=== PATIENT | male | born 1935 | race Caucasian/White ===

== ENCOUNTER 2017-07-21 16:44 | Inpatient (IN) | payer MEDICARE, OTHER ==
[2017-07-21] MEDS ORDERED: IPRATROPIUM-ALBUTEROL 3 ML NEB INHALATION STA (17:12)
[2017-07-21] MEDS ORDERED: methylPREDNISolone SOD SUCCI 125 MG/2 ML VIAL IV STA (17:12)
[2017-07-21] MEDS ORDERED: NITROGLYCERIN OINT 1 INCH/GM PACKET TOPICAL STA (17:12)
[2017-07-21] MEDS ORDERED: FUROSEMIDE 10 MG/ML 4 ML VIAL IV STA (17:12)
[2017-07-21] MEDS ORDERED: ASPIRIN 81 MG PO STA (17:13)
--- NOTE | 2017-07-21 17:18 | ED ---
SOB HPI - General Chief Complaint: Shortness of Breath Stated Complaint: CHF Time Seen by Provider: 07/21/17 17:03 Source: patient Mode of arrival: wheelchair Limitations: physical limitation - History of Present Illness Initial Comments: This 82-year-old white male presents with a complaint of some shortness of breath. He states that this is been present since September 2016 but seems to be worse over the last 2 months. He does complain of some lower extremity edema and pain. He relates that this is fairly chronic as well. He denies any history of DVT or PE but does have a history of lower extremity atherosclerosis. He also followed up some prostate cancer this past year and had 27 radiation treatments to his prostate. He apparently has not been doing very well ever since. The relates that he also has had some chills but no fevers. He has had occasional shaking and jerking of his extremities. He denies any actual chest pain. He was seen at his primary care physician's office today and was sent to the ER for further evaluation, treatment, and admission. He does wear home oxygen for chronic COPD. He does have a history of congestive heart failure as well. He denies any other pulmonary problems. No other complaints or modifying factors. He apparently does have an appointment this next week to see Dr. Sanchez from pulmonology. He does complain of significant weakness. - Related Data Home Medications Medication Instructions Recorded Confirmed Atenolol [Tenormin] 50 mg PO DAILY 07/21/17 07/21/17 Atorvastatin [Lipitor] 20 mg PO DAILY 07/21/17 07/21/17 Fexofenadine HCl [Shy Allergy] 180 mg PO DAILY 07/21/17 07/21/17 Fluticasone/Umeclidin/Vilanter 1 puff INHALATION RT-DAILY 07/21/17 07/21/17 [Trelegy Ellipta 100-62.5-25] Furosemide [Lasix] 20 mg PO DAILY 07/21/17 07/21/17 Glimepiride [Amaryl] 2 mg PO BID 07/21/17 07/21/17 Montelukast [Singulair] 10 mg PO DAILY 07/21/17 07/21/17 Naproxen 500 mg PO BID 07/21/17 07/21/17 Omeprazole 20 mg PO DAILY 07/21/17 07/21/17 Potassium Chloride ER [K-Dur 10] 10 meq PO DAILY 07/21/17 07/21/17 Tamsulosin [Flomax] 0.4 mg PO DAILY 07/21/17 07/21/17 Theophylline 24 Hour [Santo-24] 300 mg PO DAILY 07/21/17 07/21/17 Vit C/E/Zn/Coppr/Lutein/Zeaxan 1 cap PO DAILY 07/21/17 07/21/17 [Preservision Areds 2 Softgel] Vitamin B Complex 1 cap PO DAILY 07/21/17 07/21/17 sitaGLIPtin PHOS/metFORMIN HCL 1 tab PO DAILY 07/21/17 07/21/17 [Janumet Xr 100-1,000 mg Tablet] Allergies Allergy/AdvReac Type Severity Reaction Status Date / Time No Known Allergies Allergy Verified 07/21/17 17:18 Review of Systems ROS Statement: Those systems with pertinent positive or pertinent negative responses have been documented in the HPI. ROS Other: All systems not noted in ROS Statement are negative. Past Medical History Past Medical History: Heart Failure, COPD, Diabetes Mellitus, GERD/Reflux, Hyperlipidemia, Hypertension, Myocardial Infarction ([place]) Additional Past Medical History / Comment(s): prostate ca History of Any Multi-Drug Resistant Organisms: None Reported Past Surgical History: No Surgical Hx Reported Past Psychological History: No Psychological Hx Reported Smoking Status: Former smoker Past Alcohol Use History: None Reported Past Drug Use History: None Reported General Exam - General Exam Comments Initial Comments: GENERAL: The patient is well nourished and well hydrated. VITAL SIGNS: Heart rate, blood pressure, respiratory rate reviewed as recorded in nurse's notes. EYES: Pupils are round and reactive. Extraocular movements are intact. No conjunctival / lid redness or swelling. ENT: No external evidence of injury, swelling, or ecchymosis. Airway is patent. Throat is clear. NECK: Nontender. No swelling or evidence of injury. No subcutaneous emphysema. Trachea is midline. No thyroid mass. HEART: Regular rate and rhythm. Good peripheral pulses. LUNGS/CHEST: Wheezing is noted to bilateral chest. No ecchymosis, subcutaneous emphysema, or tenderness. ABDOMEN: Abdomen soft without tenderness. No palpable masses or organomegaly. No peritoneal signs. No abdominal wall swelling or ecchymosis. EXTREMITIES: There is bilateral leg tenderness and significant edema. Normal muscle tone and function. No thoracolumbar tenderness. NEUROLOGIC: Sensation is grossly intact. Cranial nerve exam reveals face is symmetrical, tongue is midline, speech is clear. SKIN: No abrasions or ecchymosis is noted. No induration or masses noted. PSYCHIATRIC: Alert and oriented. Appropriate behavior and judgment. Limitations: physical limitation Course Vital Signs 07/21/17 07/21/17 07/21/17 16:51 17:54 18:05 Temperature 99.4 F Pulse Rate 78 80 76 Respiratory 22 Rate Blood Pressure 145/63 O2 Sat by Pulse 90 L Oximetry 07/21/17 07/21/17 18:10 19:00 Temperature Pulse Rate 78 85 Respiratory 20 18 Rate Blood Pressure 145/68 118/59 O2 Sat by Pulse 98 93 L Oximetry Medical Decision Making - Medical Decision Making The patient was seen and examined. All diagnostics were reviewed. The patient had a EKG done which shows a normal sinus rhythm at a rate of 72. There is no acute ST-T wave changes noted. The AR intervals 156, QRS duration is 90, and the QTC intervals 435. An IV is established and he receives some nitroglycerin paste as well as an aspirin. He receives 80 of Lasix intravenously as well as 125 modems of Solu-Medrol. The laboratory does show evidence of acute kidney injury with no previous labs to compare. The patient also is anemic and does have a leukopenia. There is elevation of the d-dimer. The chest x-ray is reviewed. This does show the possibility of pulmonary edema. The lower extremity venous Doppler does not show any evidence of DVT. The kidney function is elevated and it is not felt as though the patient could have a CTA performed due to this. He is started on some heparin. It is felt as though he does have a degree of congestive heart failure causing his symptomatology. He may need a V/Q scan tomorrow. The patient is admitted to the hospital for further treatment. The case is discussed with internal medicine. - Lab Data Result diagrams: 07/21/17 17:27 07/21/17 17:27 Lab Results 07/21/17 07/21/17 07/21/17 Range/Units 17:27 17:27 17:27 WBC 3.1 L (3.8-10.6) k/uL RBC 3.16 L (4.30-5.90) m/uL Hgb 9.6 L (13.0-17.5) gm/dL Hct 29.4 L (39.0-53.0) % MCV 93.0 (80.0-100.0) fL MCH 30.4 (25.0-35.0) pg MCHC 32.7 (31.0-37.0) g/dL RDW 16.7 H (11.5-15.5) % Plt Count 278 (150-450) k/uL Neutrophils % (Manual) 55 % Band Neutrophils % 1 % Lymphocytes % (Manual) 22 % Monocytes % (Manual) 16 % Eosinophils % (Manual) 3 % Basophils % (Manual) 3 % Neutrophils # (Manual) 1.70 (1.3-7.7) k/uL Lymphocytes # (Manual) 0.68 L (1.0-4.8) k/uL Monocytes # (Manual) 0.50 (0-1.0) k/uL Eosinophils # (Manual) 0.09 (0-0.7) k/uL Basophils # (Manual) 0.09 (0-0.2) k/uL Nucleated RBCs 0 (0-0) /100 WBC Poikilocytosis Slight Poikilocytosis (manual Present Anisocytosis Slight PT (9.0-12.0) sec INR (<1.2) APTT (22.0-30.0) sec D-Dimer (<0.60) mg/L FEU Sodium 141 (137-145) mmol/L Potassium 3.8 (3.5-5.1) mmol/L Chloride 97 L (98-107) mmol/L Carbon Dioxide 31 H (22-30) mmol/L Anion Gap 13 mmol/L BUN 59 H (9-20) mg/dL Creatinine 1.82 H (0.66-1.25) mg/dL Est GFR (CKD-EPI)AfAm 39 (>60 ml/min/1.73 sqM) Est GFR (CKD-EPI)NonAf 33 (>60 ml/min/1.73 sqM) Glucose 157 H (74-99) mg/dL Calcium 8.6 (8.4-10.2) mg/dL Total Bilirubin 0.7 (0.2-1.3) mg/dL AST 19 (17-59) U/L ALT 22 (21-72) U/L Alkaline Phosphatase 61 (38-126) U/L Total Creatine Kinase 46 L (55-170) U/L CK-MB (CK-2) 1.0 (0.0-2.4) ng/mL CK-MB (CK-2) Rel Index 2.2 Troponin I <0.012 (0.000-0.034) ng/mL NT-Pro-B Natriuret Pep pg/mL Total Protein 6.0 L (6.3-8.2) g/dL Albumin 3.5 (3.5-5.0) g/dL Urine Color Urine Appearance (Clear) Urine pH (5.0-8.0) Ur Specific [place] (1.001-1.035) Urine Protein (Negative) Urine Glucose (UA) (Negative) Urine Ketones (Negative) Urine Blood (Negative) Urine Nitrite (Negative) Urine Bilirubin (Negative) Urine Urobilinogen (<2.0) mg/dL Ur Leukocyte Esterase (Negative) Theophylline ug/mL 07/21/17 07/21/17 07/21/17 Range/Units 17:27 17:27 17:27 WBC (3.8-10.6) k/uL RBC (4.30-5.90) m/uL Hgb (13.0-17.5) gm/dL Hct (39.0-53.0) % MCV (80.0-100.0) fL MCH (25.0-35.0) pg MCHC (31.0-37.0) g/dL RDW (11.5-15.5) % Plt Count (150-450) k/uL Neutrophils % (Manual) % Band Neutrophils % % Lymphocytes % (Manual) % Monocytes % (Manual) % Eosinophils % (Manual) % Basophils % (Manual) % Neutrophils # (Manual) (1.3-7.7) k/uL Lymphocytes # (Manual) (1.0-4.8) k/uL Monocytes # (Manual) (0-1.0) k/uL Eosinophils # (Manual) (0-0.7) k/uL Basophils # (Manual) (0-0.2) k/uL Nucleated RBCs (0-0) /100 WBC Poikilocytosis Poikilocytosis (manual Anisocytosis PT 11.4 (9.0-12.0) sec INR 1.2 H (<1.2) APTT 26.7 (22.0-30.0) sec D-Dimer 2.20 H (<0.60) mg/L FEU Sodium (137-145) mmol/L Potassium (3.5-5.1) mmol/L Chloride (98-107) mmol/L Carbon Dioxide (22-30) mmol/L Anion Gap mmol/L BUN (9-20) mg/dL Creatinine (0.66-1.25) mg/dL Est GFR (CKD-EPI)AfAm (>60 ml/min/1.73 sqM) Est GFR (CKD-EPI)NonAf (>60 ml/min/1.73 sqM) Glucose (74-99) mg/dL Calcium (8.4-10.2) mg/dL Total Bilirubin (0.2-1.3) mg/dL AST (17-59) U/L ALT (21-72) U/L Alkaline Phosphatase (38-126) U/L Total Creatine Kinase (55-170) U/L CK-MB (CK-2) (0.0-2.4) ng/mL CK-MB (CK-2) Rel Index Troponin I (0.000-0.034) ng/mL NT-Pro-B Natriuret Pep 1050 pg/mL Total Protein (6.3-8.2) g/dL Albumin (3.5-5.0) g/dL Urine Color Urine Appearance (Clear) Urine pH (5.0-8.0) Ur Specific [place] (1.001-1.035) Urine Protein (Negative) Urine Glucose (UA) (Negative) Urine Ketones (Negative) Urine Blood (Negative) Urine Nitrite (Negative) Urine Bilirubin (Negative) Urine Urobilinogen (<2.0) mg/dL Ur Leukocyte Esterase (Negative) Theophylline 8.7 ug/mL 07/21/17 Range/Units 18:58 WBC (3.8-10.6) k/uL RBC (4.30-5.90) m/uL Hgb (13.0-17.5) gm/dL Hct (39.0-53.0) % MCV (80.0-100.0) fL MCH (25.0-35.0) pg MCHC (31.0-37.0) g/dL RDW (11.5-15.5) % Plt Count (150-450) k/uL Neutrophils % (Manual) % Band Neutrophils % % Lymphocytes % (Manual) % Monocytes % (Manual) % Eosinophils % (Manual) % Basophils % (Manual) % Neutrophils # (Manual) (1.3-7.7) k/uL Lymphocytes # (Manual) (1.0-4.8) k/uL Monocytes # (Manual) (0-1.0) k/uL Eosinophils # (Manual) (0-0.7) k/uL Basophils # (Manual) (0-0.2) k/uL Nucleated RBCs (0-0) /100 WBC Poikilocytosis Poikilocytosis (manual Anisocytosis PT (9.0-12.0) sec INR (<1.2) APTT (22.0-30.0) sec D-Dimer (<0.60) mg/L FEU Sodium (137-145) mmol/L Potassium (3.5-5.1) mmol/L Chloride (98-107) mmol/L Carbon Dioxide (22-30) mmol/L Anion Gap mmol/L BUN (9-20) mg/dL Creatinine (0.66-1.25) mg/dL Est GFR (CKD-EPI)AfAm (>60 ml/min/1.73 sqM) Est GFR (CKD-EPI)NonAf (>60 ml/min/1.73 sqM) Glucose (74-99) mg/dL Calcium (8.4-10.2) mg/dL Total Bilirubin (0.2-1.3) mg/dL AST (17-59) U/L ALT (21-72) U/L Alkaline Phosphatase (38-126) U/L Total Creatine Kinase (55-170) U/L CK-MB (CK-2) (0.0-2.4) ng/mL CK-MB (CK-2) Rel Index Troponin I (0.000-0.034) ng/mL NT-Pro-B Natriuret Pep pg/mL Total Protein (6.3-8.2) g/dL Albumin (3.5-5.0) g/dL Urine Color Light Yellow Urine Appearance Clear (Clear) Urine pH 5.0 (5.0-8.0) Ur Specific [place] 1.008 (1.001-1.035) Urine Protein Negative (Negative) Urine Glucose (UA) Negative (Negative) Urine Ketones Negative (Negative) Urine Blood Negative (Negative) Urine Nitrite Negative (Negative) Urine Bilirubin Negative (Negative) Urine Urobilinogen <2.0 (<2.0) mg/dL Ur Leukocyte Esterase Negative (Negative) Theophylline ug/mL Disposition Clinical Impression: Dyspnea, Hypoxia, Leg pain, Anemia, Elevated d-dimer, Hypertension, [place] (acute kidney injury), CHF (congestive heart failure), Pulmonary edema Disposition: ADMITTED IP TO THIS HOSP Condition: Fair Is patient prescribed a controlled substance at d/c from ED?: No Time of Disposition: 19:35
[2017-07-21 17:43] LABS: Anisocytosis Slight; HCT 29.4 % (39.0-53.0); HGB 9.6 gm/dL (13.0-17.5); MCH 30.4 pg (25.0-35.0); MCHC 32.7 g/dL (31.0-37.0); Mean Platelet Volume 7.3; Platelet Count 278 k/uL (150-450); Poikilocytosis Slight; RBC 3.16 m/uL (4.30-5.90); RDW 16.7 % (11.5-15.5); WBC 3.1 k/uL (3.8-10.6)
[2017-07-21 17:56] LABS: INR 1.2 (<1.2); Partial Thromboplastin Time 26.7 sec (22.0-30.0); Prothrombin Time 11.4 sec (9.0-12.0)
[2017-07-21 17:57] LABS: Albumin 3.5 g/dL (3.5-5.0); Calcium 8.6 mg/dL (8.4-10.2); Potassium 3.8 mmol/L (3.5-5.1); Total Bilirubin 0.7 mg/dL (0.2-1.3)
[2017-07-21 18:02] LABS: D-Dimer 2.2 mg/L FEU (<0.60)
[2017-07-21 18:05] LABS: Creatine Kinase 46 U/L (55-170)
[2017-07-21 18:13] LABS: Band Neutrophils % 1 %; Basophils # (M) 0.09 k/uL (0-0.2); Eosinophils # (M) 0.09 k/uL (0-0.7); Lymphocytes # (M) 0.68 k/uL (1.0-4.8); Neutrophils % (M) 55 %; Nucleated Red Blood Cells 0 /100 WBC (0-0); Total Cells Counted 100
[2017-07-21 18:14] LABS: Poikilocytosis (M) Present
[2017-07-21] MEDS ORDERED: HEPARIN SODIUM,PORCINE 5,000 UNIT/ML 1 ML VIAL IV PRN (18:14)
[2017-07-21] MEDS ORDERED: HEPARIN SODIUM,PORCINE 10,000 UNIT/ML 1 ML VIAL IV ONE (18:14)
[2017-07-21 18:18] LABS: Troponin I <0.012 ng/mL (0.000-0.034)
[2017-07-21] MEDS: HEPARIN SODIUM,PORCINE/D5W PMX 25,000 UNIT in DEXTROSE/WATER 1 500ML.BAG IV SCH (18:55)
--- NOTE | 2017-07-21 19:16 | US ---
EXAMINATION TYPE: US venous doppler duplex LE DATE OF EXAM: 07/21/2017 6:37 PM COMPARISON: NONE CLINICAL HISTORY: Pain. Swelling SIDE PERFORMED: Bilateral TECHNIQUE: The lower extremity deep venous system is examined utilizing real time linear array sonog nico with graded compression, doppler sonography and color-flow sonography. VESSELS IMAGED: External Iliac Vein (EIV) Common Femoral Vein Deep Femoral Vein Greater Saphenous Vein * Femoral Vein Popliteal Vein Small Saphenous Vein * Proximal Calf Veins (* superficial vessels) FINDINGS: Grayscale, color doppler, spectral doppler imaging performed of the deep veins of the lowe r extremities. There is normal flow, compressibility, vascular waveforms. IMPRESSION: NEGATIVE FOR DVT, BILATERAL LOWER EXTREMITIES.
[2017-07-21 19:18] LABS: Appearance,Urine Clear (Clear); Bilirubin,Urine Negative (Negative); Blood,Urine Negative (Negative); Color,Urine Light Yellow; Glucose,Urine (UA) Negative (Negative); Ketones,Urine Negative (Negative); Leukocyte Esterase,Urine Negative (Negative); Nitrite,Urine Negative (Negative); Protein,Urine Negative (Negative); Specific Gravity,Urine 1.008 (1.001-1.035); Urobilinogen,Urine <2.0 mg/dL (<2.0)
--- NOTE | 2017-07-21 19:18 | XR ---
EXAMINATION: XR chest 2V DATE AND TIME: 07/21/2017 6:12 PM ORDERING PROVIDER: Adis Kohler DO CLINICAL INDICATION: difficulty breathing TECHNIQUE: PA and lateral COMPARISON: None. DESCRIPTION: There is mild silhouetting of the pulmonary vasculature bilaterally likely fine reticular pattern of increased density, suggesting mild interstitial phase pulmonary edema. There are a few scattered small bands of added opacities consistent with subsegmental atelectasis. The pleural spaces are negative. The cardiac silhouette is mildly enlarged. The mediastinal and pleural silhouettes are unremarkable. The skeletal structures are intact without focal findings. The soft tissues are unremarkable. IMPRESSION: Findings which can correlate with a clinical diagnosis of mild interstitial phase cardiogenic pulmona ry edema.
[2017-07-21 20:35] LABS: Glucose,Whole Blood 190 mg/dL (75-99)
[2017-07-21 20:42] VITALS: BMI 27.7
[2017-07-21] MEDS: FUROSEMIDE 10 MG/ML 4 ML VIAL IV SCH (21:02)
[2017-07-21] MEDS: metFORMIN 500 MG TAB PO SCH (21:03)
[2017-07-21] MEDS: GLIMEPIRIDE 2 MG TAB PO SCH (21:03)
[2017-07-21] MEDS: NAPROXEN 250 MG TAB PO SCH (21:04)
[2017-07-21] MEDS: IPRATROPIUM-ALBUTEROL 3 ML NEB INHALATION SCH (21:06)
[2017-07-21] MEDS: methylPREDNISolone SOD SUCCI 125 MG/2 ML VIAL IV SCH (21:06)
[2017-07-21] MEDS: INSULIN ASPART 100 UNIT/ML 1 ML 10 ML VIAL SQ SCH (21:07)
[2017-07-21] MEDS: NITROGLYCERIN OINT 1 INCH/GM PACKET TOPICAL SCH (21:07)
[2017-07-22 00:38] LABS: Creatine Kinase MB 0.8 ng/mL (0.0-2.4); Troponin I <0.012 ng/mL (0.000-0.034)
[2017-07-22] MEDS: IPRATROPIUM-ALBUTEROL 3 ML NEB INHALATION SCH ×5 (01:27→20:15)
[2017-07-22] MEDS ORDERED: IPRATROPIUM-ALBUTEROL 3 ML NEB INHALATION PRN (01:29)
--- NOTE | 2017-07-22 03:13 | HP ---
HISTORY AND PHYSICAL DATE OF SERVICE: 07/21/2017 CHIEF COMPLAINT: Shortness of breath. HISTORY OF PRESENT ILLNESS: This 82 -year-old gentleman with a past medical history of CHF, COPD, diabetes type 2, GERD, hypertension, hyperlipidemia, being followed by Dr. Juarez in the outpatient setting was having shortness of breath and apparently CHF in [place]. The patient recently came to [place]. Patient admitted to [facility] a couple of times and because of increased shortness of breath, the patient presented to Dr. Juarez's office today. Dr. Juarez discussed the case with me and sent the patient to the ER for further evaluation and treatment. There is no history of fever, rigors or chills. No history of headache, loss of consciousness, seizures. PAST MEDICAL HISTORY: 1. COPD. 2. CHF. 3. Diabetes. 4. GERD. 5. Hypertension. 6. Hyperlipidemia. MEDICATIONS: Prior to admission include home medications are: 1. Vitamin B complex 1 p.o. daily. 2. Flomax 0.4 daily. 3. Vitamin 1 p.o. daily. 4. Santo-24 300 mg b.i.d. 5. Singular 10 mg p.o. daily. 6. K-Dur 10 mEq p.o. daily. 7. Lasix 20 mg b.i.d. 8. Shy 180 mg p.o. daily. 9. Omeprazole 20 mg p.o. daily. 10.Naproxen 500 mg p.o. t.i.d. 11.Tenormin 50 mg p.o. daily. 12.Janumet 1 tab p.o. daily. 13.Amaryl 2 mg p.o. b.i.d. 14.Fluticasone Brilinta 1 puff daily. 15.Lipitor 20 mg p.o. daily. ALLERGIES: None. FAMILY HISTORY: No history of heart disease or strokes in the family. SOCIAL HISTORY: Previous history of smoking. No history of current smoking or alcohol intake. REVIEW OF SYSTEMS: ENT: Diminished hearing and vision. CARDIOVASCULAR: As mentioned earlier. Respiration: Mentioned earlier. GI no nausea or vomiting. : No dysuria. Nervous system: No numbness or weakness. Allergy/Immunology: No asthma or hay fever. MUSCULOSKELETAL: As mentioned earlier. Hematology/Oncology: No history of anemia. Endocrine: Diabetes mellitus. Constitutional: As mentioned earlier. Dermatology negative. Rheumatology negative. Psychiatry as mentioned earlier. PHYSICAL EXAMINATION: Alert, oriented x3. Pulse 92. Blood pressure 139/68, respiration 19, temperature 97.6, pulse ox 94% on 3 L. HEENT is conjunctivae normal. Oral mucosa moist. NECK: Jugular venous distention at the root. No carotid bruit. CARDIOVASCULAR system: S1, S2 muffled. No S3, no S4. RESPIRATORY: Breath sounds diminished in the bases. Bilateral scattered rhonchi and crackles. ABDOMEN: Soft, nontender. No mass. LEGS: Bilateral leg edema NERVOUS SYSTEM: Higher functions as mentioned earlier. Moves all 4 limbs. No focal motor deficits. Lymphatics: No lymph nodes palpable in the neck, axillae or groin. SKIN: No ulcers, rashes or bleeding. LAB STUDIES: WBC 3.9, hemoglobin 9.6. Otherwise, creatinine is 1.82. ASSESSMENT: 1. Shortness of breath, possibly congestive heart failure acute exacerbation. 2. Chronic obstructive pulmonary disease acute exacerbation. 3. Increased creatinine with chronic kidney disease. 4. Elevated D-dimer. 5. History of diabetes type 2. 6. Gastroesophageal reflux disease. 7. Hypertension. 8. Hyperlipidemia. 9. Bilateral leg swelling. 10.History of myocardial infarction. 11.History of prostate cancer. 12.NO CODE, NO CPR, NO VENT. RECOMMENDATIONS AND DISCUSSION: In this 82-year-old gentleman who presented with multiple complex medical issues, we will monitor the patient closely. Continue the current medications. Continue symptomatic treatment. Otherwise, we will initiate cautious diuresis and I would also recommend IV heparin. Cardiology consultation. I would also recommend consultation with pulmonary as well for COPD. Otherwise repeat labs will be ordered. Creatinine will be monitored monitor close. Home medications are reconciled. The prognosis is guarded because of multiple complex medical issues. Further recommendations to follow. A copy of dictation being forwarded to Dr. Juarez who is the primary physician. MMCT / RADHAN: [id number] /
[2017-07-22 06:03] LABS: Glucose,Whole Blood 310 mg/dL (75-99)
[2017-07-22 06:18] LABS: Anisocytosis Slight; Basophils % (A) 1 %; Eosinophils % (A) 0 %; HCT 30.6 % (39.0-53.0); HGB 9.9 gm/dL (13.0-17.5); Hypochromasia Slight; Lymphocytes # (A) 0.4 k/uL (1.0-4.8); Lymphocytes % (A) 13 %; MCH 30.6 pg (25.0-35.0); MCHC 32.3 g/dL (31.0-37.0); MCV 94.5 fL (80.0-100.0); Mean Platelet Volume 6.7; Monocytes # (A) 0.1 k/uL (0-1.0); Monocytes % (A) 2 %; Neutrophils # (A) 2.4 k/uL (1.3-7.7); Neutrophils % (A) 83 %; Platelet Count 270 k/uL (150-450); Poikilocytosis Slight; RBC 3.24 m/uL (4.30-5.90); RDW 16.6 % (11.5-15.5); WBC 2.9 k/uL (3.8-10.6)
[2017-07-22] MEDS: PANTOPRAZOLE 40 MG TABLET PO SCH (06:32)
[2017-07-22] MEDS: INSULIN ASPART 100 UNIT/ML 1 ML 10 ML VIAL SQ SCH ×4 (06:33→21:36)
[2017-07-22 07:01] LABS: Creatine Kinase MB 0.9 ng/mL (0.0-2.4); Troponin I 0.012 ng/mL (0.000-0.034)
[2017-07-22] MEDS ORDERED: VILANTER INHALATION SCH (08:00)
[2017-07-22] MEDS ORDERED: UMECLIDIN INHALATION SCH (08:00)
[2017-07-22] MEDS ORDERED: FLUTICASONE INHALATION SCH (08:00)
--- NOTE | 2017-07-22 09:15 | NM ---
EXAMINATION TYPE: NM pul vent and perfuse DATE OF EXAM: 07/22/2017 COMPARISON: NONE HISTORY: Elevated d-dimer, short of breath lower extremity swelling TECHNIQUE: Utilizing inhalation of 39.5 mCi Tc 99m DTPA aerosol and intravenous injection of 5.35 mC i of Tc 99m MAA, ventilation and perfusion images are acquired post injection in multiple projections . FINDINGS: There is a moderate-sized fusion defect along the lateral right lung. On the oblique view there appea rs to be right basilar defect larger on perfusion. Large mismatched defects are not evident. There is a somewhat patchy distribution on the ventilation portion of the study. Small triple match defect at the right base may be present. This would place the probability for pulm onary embolism into the low end of the intermediate range, 22%. With the additional defects above thi s raises the probability further into the intermediate range, between 20% and 80%. IMPRESSION: Intermediate probability for pulmonary embolism based on PIOPED 2 criteria.
[2017-07-22] MEDS: methylPREDNISolone SOD SUCCI 125 MG/2 ML VIAL IV SCH ×4 (09:58→23:41)
[2017-07-22] MEDS: NITROGLYCERIN OINT 1 INCH/GM PACKET TOPICAL SCH ×4 (09:59→21:25)
[2017-07-22] MEDS: FUROSEMIDE 10 MG/ML 4 ML VIAL IV SCH ×2 (09:59→21:24)
[2017-07-22] MEDS: NAPROXEN 250 MG TAB PO SCH ×2 (09:59→21:25)
[2017-07-22] MEDS: POTASSIUM CHLORIDE ER 10 MEQ TAB.ER.PRT PO SCH (10:06)
[2017-07-22] MEDS: B COMPLEX-VIT C-VIT E-ZINC 1 EACH TAB PO SCH (10:06)
[2017-07-22] MEDS: LORATADINE 10 MG TAB PO SCH (10:06)
[2017-07-22] MEDS: VIT A,C & E-LUTEIN-MINERALS 1 EACH TAB PO SCH (10:06)
[2017-07-22] MEDS: THEOPHYLLINE 24 HOUR 300 MG CAP.ER.24H PO SCH (10:06)
[2017-07-22] MEDS: TAMSULOSIN 0.4 MG CAP.ER.24H PO SCH (10:06)
[2017-07-22] MEDS: MONTELUKAST 10 MG TAB PO SCH (10:06)
[2017-07-22] MEDS: ATENOLOL 50 MG TAB PO SCH (10:06)
[2017-07-22] MEDS: ATORVASTATIN 20 MG TAB PO SCH (10:06)
[2017-07-22] MEDS: GLIMEPIRIDE 2 MG TAB PO SCH ×2 (10:06→21:25)
[2017-07-22] MEDS: LINAGLIPTIN 5 MG TABLET PO SCH (10:06)
[2017-07-22] MEDS: ASPIRIN 325 MG TAB PO SCH (10:06)
[2017-07-22] MEDS: metFORMIN 500 MG TAB PO SCH ×2 (10:07→21:25)
--- NOTE | 2017-07-22 10:37 | P.CNPUL ---
History of Present Illness Consult date: 07/22/17 Requesting physician: Tin E Tano Reason for consult: dyspnea, COPD Chief complaint: Shortness of breath, swelling of the lower extremities History of present illness: This is a very pleasant 82-year-old gentleman who follows with Dr. Juarez as his primary care physician. He has a history of hyperlipidemia, hypertension, coronary artery disease, congestive heart failure, diabetes mellitus, gastroesophageal reflux disease. He also has a history of chronic obstructive pulmonary disease and was recently, in April 2017, started on home oxygen. He was due to see Dr. Morgan in our office as a new patient this week. He has been seen by a spring assembler supervisor in [place] where he spends his mae. He is on Trelegy, theophylline, Singulair, albuterol in the outpatient setting. He is unsure of his pulmonary function numbers. He does have a history of prostate cancer diagnosed in September 2016. He had undergone 25 external radiation treatments and subsequently sent to [facility] for a 26 internal radiation with seed implants. He states since that last treatment he has had lower extremity weakness and worsening shortness of breath. He has been seen by a neurologist who states his lower extremity weakness is secondary to the radiation treatments. Neuropathy. Over the past several weeks he has also been having complaints of increasing swelling in the lower extremities and had been seen in [facility] treated with diuretics and released. The swelling started again and he had been seen by Dr. Juarez who at this time referred him here yesterday for further evaluation. He is seen today in consultation on the selective care unit. He is awake and alert in no acute distress. He is dyspneic with minimal exertion and minimal conversation. He states this is not new but has been getting progressively worse. Troponins have been negative. ProBNP 1050. Creatinine 1.82. White count 2.9. Hemoglobin 9.9. D-dimer 2.20. Doppler studies of the lower extremities were negative for DVT bilaterally. VQ scan revealed a moderate-sized effusion defect along the lateral right lung and a right basilar defect. Read as intermediate probability for pulmonary embolism. The patient is currently on a heparin drip. He is also receiving Lasix 40 mg IV push every 12 hours. He is currently maintaining good O2 saturations in the 90s on 3 L/m per nasal cannula. He's been afebrile. Hemodynamically stable. Initiated on bronchodilators and IV Solu-Medrol. Review of Systems Constitutional: Reports fatigue, Reports lethargy, Reports weight gain Eyes: denies blurred vision, denies decreased vision Ears: bilateral: decreased hearing Ears, nose, mouth and throat: Denies headache, Denies sore throat Cardiovascular: Reports dyspnea on exertion, Reports leg edema, Reports shortness of breath Respiratory: Reports cough, Reports dyspnea, Reports home oxygen, Reports wheezing Gastrointestinal: Denies abdominal pain, Denies diarrhea, Denies nausea, Denies vomiting Genitourinary: Reports urinary hesitancy Musculoskeletal: Reports muscle weakness, Reports shooting leg pain Musculoskeletal: bilateral: ankle swelling Integumentary: Denies pruritus, Denies rash Neurological: Reports numbness, Reports weakness Psychiatric: Denies anxiety, Denies depression Endocrine: Denies fatigue, Denies weight change Hematologic/Lymphatic: Reports as per HPI Allergic/Immunologic: Reports as per HPI Past Medical History Past Medical History: Heart Failure, COPD, Diabetes Mellitus, GERD/Reflux, Hyperlipidemia, Hypertension, Myocardial Infarction ([place]) Additional Past Medical History / Comment(s): prostate ca Last Myocardial Infarction Date:: unknown History of Any Multi-Drug Resistant Organisms: None Reported Past Surgical History: No Surgical Hx Reported, Orthopedic Surgery Additional Past Surgical History / Comment(s): right rotator cuff sugery Past Anesthesia/Blood Transfusion Reactions: No Reported Reaction Past Psychological History: No Psychological Hx Reported Smoking Status: Former smoker Past Alcohol Use History: None Reported Past Drug Use History: None Reported Medications and Allergies Home Medications Medication Instructions Recorded Confirmed Type Atenolol [Tenormin] 50 mg PO DAILY 07/21/17 07/21/17 History Atorvastatin [Lipitor] 20 mg PO DAILY 07/21/17 07/21/17 History Fexofenadine HCl [Shy Allergy] 180 mg PO DAILY 07/21/17 07/21/17 History Fluticasone/Umeclidin/Vilanter 1 puff INHALATION RT-DAILY 07/21/17 07/21/17 History [Trelegy Ellipta 100-62.5-25] Furosemide [Lasix] 20 mg PO DAILY 07/21/17 07/21/17 History Glimepiride [Amaryl] 2 mg PO BID 07/21/17 07/21/17 History Montelukast [Singulair] 10 mg PO DAILY 07/21/17 07/21/17 History Naproxen 500 mg PO BID 07/21/17 07/21/17 History Omeprazole 20 mg PO DAILY 07/21/17 07/21/17 History Potassium Chloride ER [K-Dur 10] 10 meq PO DAILY 07/21/17 07/21/17 History Tamsulosin [Flomax] 0.4 mg PO DAILY 07/21/17 07/21/17 History Theophylline 24 Hour [Santo-24] 300 mg PO DAILY 07/21/17 07/21/17 History Vit C/E/Zn/Coppr/Lutein/Zeaxan 1 cap PO DAILY 07/21/17 07/21/17 History [Preservision Areds 2 Softgel] Vitamin B Complex 1 cap PO DAILY 07/21/17 07/21/17 History sitaGLIPtin PHOS/metFORMIN HCL 1 tab PO DAILY 07/21/17 07/21/17 History [Janumet Xr 100-1,000 mg Tablet] Cetirizine HCl [Zyrtec] 10 mg PO DAILY 07/22/17 07/22/17 History Metolazone [Zaroxolyn] 5 mg PO DAILY 07/22/17 07/22/17 History Allergies Allergy/AdvReac Type Severity Reaction Status Date / Time No Known Allergies Allergy Verified 07/21/17 17:18 Physical Exam Vitals: Vital Signs Temp Pulse Pulse Resp BP BP Pulse Ox 07/22/17 07:50 98 F 96 18 135/67 94 L 07/22/17 07:45 92 07/22/17 07:35 92 07/22/17 03:46 96 20 07/22/17 03:37 97.0 F L 96 20 141/97 94 L 07/21/17 23:33 92 19 07/21/17 23:31 97.6 F 92 19 139/69 94 L 07/21/17 20:15 98.3 F 92 18 135/58 93 L 07/21/17 19:58 97.7 F 95 22 152/70 91 L 07/21/17 19:00 85 18 118/59 93 L 07/21/17 18:10 78 20 145/68 98 07/21/17 18:05 76 07/21/17 17:54 80 07/21/17 16:51 99.4 F 78 22 145/63 90 L Intake and Output 07/21/17 07/22/17 07/22/17 22:59 06:59 14:59 Intake Total 162 159.362 Output Total 200 1525 Balance -38 -1365.638 Intake: Intake, IV Titration 62 159.362 Amount Heparin Sodium,Porcine/ 62 159.362 D5w Pmx 25,000 unit In Dextrose/Water 1 500ml. bag @ 18 UNITS/KG/HR 31. 35 mls/hr IV .[id number] [facility] Rx#:[id number] Oral 100 Output: Urine 200 1525 Other: Voiding Method Urinal # Voids 1 Weight 85.2 kg - Constitutional General appearance: average body habitus, mild distress - EENT Eyes: EOMI, PERRLA ENT: hard of hearing Ears: bilateral: normal - Neck Neck: normal ROM Carotids: bilateral: upstroke normal Thyroid: bilateral: normal size - Respiratory Respiratory: bilateral: diminished, wheezing - Cardiovascular Rhythm: regular Heart sounds: normal: S1, S2 - Gastrointestinal General gastrointestinal: normal bowel sounds, no organomegaly, soft, no tenderness - Neurologic Neurologic: CNII-XII intact - Musculoskeletal Musculoskeletal: generalized weakness - Psychiatric Psychiatric: A&O x's 3, appropriate affect, intact judgment & insight Results - Laboratory Findings CBC and BMP: 07/22/17 05:40 07/21/17 17:27 PT/INR, D-dimer PT 11.4 sec (9.0-12.0) 07/21/17 17:27 INR 1.2 (<1.2) H 07/21/17 17:27 D-Dimer 2.20 mg/L FEU (<0.60) H 07/21/17 17:27 Abnormal lab findings: Abnormal Labs 07/21/17 07/21/17 07/21/17 17:27 17:27 17:27 WBC 3.1 L RBC 3.16 L Hgb 9.6 L Hct 29.4 L RDW 16.7 H Lymphocytes # Lymphocytes # (Manual) 0.68 L INR APTT D-Dimer Chloride 97 L Carbon Dioxide 31 H BUN 59 H Creatinine 1.82 H Glucose 157 H POC Glucose (mg/dL) Total Creatine Kinase 46 L Total Protein 6.0 L 07/21/17 07/21/17 07/21/17 17:27 20:32 23:56 WBC RBC Hgb Hct RDW Lymphocytes # Lymphocytes # (Manual) INR 1.2 H APTT 60.1 H D-Dimer 2.20 H Chloride Carbon Dioxide BUN Creatinine Glucose POC Glucose (mg/dL) 190 H Total Creatine Kinase Total Protein 07/22/17 07/22/17 05:40 06:01 WBC 2.9 L RBC 3.24 L Hgb 9.9 L Hct 30.6 L RDW 16.6 H Lymphocytes # 0.4 L Lymphocytes # (Manual) INR APTT D-Dimer Chloride Carbon Dioxide BUN Creatinine Glucose POC Glucose (mg/dL) 310 H Total Creatine Kinase Total Protein - Diagnostic Findings Chest x-ray: image reviewed Assessment and Plan Assessment: Impression: #1 Acute on chronic hypoxic respiratory failure secondary to suspected pulmonary embolism as well as acute exacerbation of chronic obstructive pulmonary disease and possible acute on chronic systolic congestive heart failure. Echocardiogram pending. #2 Oxygen dependent chronic obstructive pulmonary disease. #3 History of chronic tobacco dependence. #4 History of prostate cancer status post radiation with lower extremity neuropathy. #5 Lower extremity edema and suspect secondary to congestive heart failure. #6 History of coronary artery disease. #7 Diabetes mellitus. #8 Gastroesophageal reflux disease. #9 Hyperlipidemia. #10 Acute renal failure secondary to diuretics. Plan: The patient was seen and evaluated by Dr. Bonilla. Chest x-ray, VQ scan and labs were all reviewed. We'll go ahead and continue with the heparin drip for now. Intermediate probability of PE. The patient does have a history of recent progressive prostate cancer. We'll also treat him for COPD exacerbation. Continue bronchodilators, Symbicort and IV Solu-Medrol. He was due to be seen in our office as a new patient. He does have a spring assembler supervisor in [place]. He is oxygen dependent. We will continue to follow and make further recommendations based on his clinical status. I, the cosigning physician, performed a history & physical examination of the patient. Lungs sounds have bilateral end expiratory wheeze, diminished. Maintaining good O2 saturations in the 90s on 3 L/m per nasal cannula. I discussed the assessment and plan of care with my nurse practitioner, Kanwal oGdfrey. I attest to the above note as dictated by her. Time with Patient: Greater than 30
[2017-07-22] MEDS: HEPARIN SODIUM,PORCINE/D5W PMX 25,000 UNIT in DEXTROSE/WATER 1 500ML.BAG IV SCH ×2 (10:43→23:46)
[2017-07-22 12:02] LABS: Glucose,Whole Blood 307 mg/dL (75-99)
[2017-07-22] MEDS: INSULIN DETEMIR 100 UNIT/ML 10 ML VIAL SQ SCH (13:14)
--- NOTE | 2017-07-22 13:31 | ECHOF ---
Referral Reason:Heart Failure MEASUREMENTS -------- HEIGHT: 180.3 cm WEIGHT: 84.8 kg BP: 141/97 RVIDd: 3.4 cm (< 3.3) IVSd: 0.9 cm (0.6 - 1.1) LVIDd: 5.3 cm (3.9 - 5.3) LVPWd: 1.1 cm (0.6 - 1.1) IVSs: 1.5 cm LVIDs: 2.7 cm LVPWs: 2.1 cm Ao Diam: 3.1 cm (2.0 - 3.7) LA Diam: 2.9 cm (2.7 - 3.8) MV EXCURSION: 16.009 mm (> 18.000) MV EF SLOPE: 76 mm/s (70 - 150) EPSS: 0.7 cm MV E Khoa: 1.10 m/s MV DecT: 132 ms MV A Khoa: 1.43 m/s MV E/A Ratio: 0.77 RAP: 5.00 mmHg RVSP: 54.59 mmHg FINDINGS -------- Sinus rhythm. This was a technically difficult study with suboptimal views. The left ventricular size is normal. Left ventricular wall thickness is normal. Overall left vent ricular systolic function is normal with, an EF between 55 - 60 %. The right ventricle is mildly enlarged. The left atrium is normal in size. The right atrium is normal in size. The aortic valve was not well visualized. The mitral valve leaflets are mildly thickened. There is trace mitral regurgitation. Mild tricuspid regurgitation present. There is mild pulmonary hypertension. The right ventricular systolic pressure, as measured by Doppler, is 54.59mmHg. The pulmonic valve was not well visualized. There is no pulmonic regurgitation present. The aortic root, ascending aorta and aortic arch are normal. Normal inferior vena cava with normal inspiratory collapse consistent with estimated right atrial pre ssure of 5 mmHg. There is no pericardial effusion. CONCLUSIONS -------- 1. Sinus rhythm. 2. This was a technically difficult study with suboptimal views. 3. The left ventricular size is normal. 4. Left ventricular wall thickness is normal. 5. Overall left ventricular systolic function is normal with, an EF between 55 - 60 %. 6. The right ventricle is mildly enlarged. 7. The left atrium is normal in size. 8. The aortic valve was not well visualized. 9. The mitral valve leaflets are mildly thickened. 10. There is trace mitral regurgitation. 11. Mild tricuspid regurgitation present. 12. There is mild pulmonary hypertension. 13. There is no pulmonic regurgitation present. 14. The aortic root, ascending aorta and aortic arch are normal. 15. Normal inferior vena cava with normal inspiratory collapse consistent with estimated right atrial pressure of 5 mmHg. 16. There is no pericardial effusion. SALES OFFICER: Lashawn Carmichael RDCS
[2017-07-22 14:08] LABS: Hemoglobin A1C 6.9 % (4.0-6.0)
--- NOTE | 2017-07-22 15:29 | CDI ---
Documentation Clarification Form Date: 07/22/2017 CDS: Sole Costa, CCS, CCDS Admit Date: 07/21/2017 Patient Name: Roberto Heard ATTENTION: The Clinical Documentation Specialists (CDI) and [facility] Coding Staff appreciate your assistance in clarifying documentation. Please respond to the clarification below the line at the bottom and electronically sign. The CDI & [facility] Coding staff will review the response and follow-up if needed. Please note: Queries are made part of the Legal Health Record. If you have any questions, please contact the author of this message via ITS. Dr. Nyasia Christiansen: Patient presented to with increased SOB. Diagnosed with Acute Exac COPD, Acute on Chronic Systolic CHF, Acute on Chronic Hypoxic Respiratory Failure, possible PE and Acute Kidney Failure. Per the History & Physicial: Increased creatinine with chronic kidney disease. History: Hypertension, CHF, COPD, DM II, GERD, on home O2. Clinical Indicators: LAB: BUN 59, Creatinine 1.82, GFR 33, Glucose 157 Baseline is not known or documented. Treatment: IV Lasix, IV Solumedrol, IV Heparin, Albuterol INH, O2 3Lnc. No IV fluids given d/t CHF, chronic pulmonary edema & possible PE. Home meds: Zaroxolyn, K Dur, Lasix, Tenormin, Metformin, Amaryl In order to capture the severity of condition, please clarify if the condition signifies: CKD Stage 1 (GFR > 90) CKD Stage 2 (GFR 60-89) CKD Stage 3 (GFR 30-59) CKD Stage 4 (GFR 15-29) CKD Stage 5 (GFR <15) Other, please specify Unable to determine Please continue to document in your progress notes and discharge summary in order to capture severity of illness and risk of mortality. Include clinical findings that support your diagnosis. CKD Stage 3 (GFR 30-59) MTDD
[2017-07-22 16:11] LABS: Glucose,Whole Blood 352 mg/dL (75-99)
--- NOTE | 2017-07-22 20:09 | CONS ---
CONSULTATION REASON FOR CONSULTATION: Shortness of breath, possible heart failure. Mr. Heard is a gentleman who is 82 years of age. He came into the hospital with complaints of increasing shortness of breath that has been going on for about a year, but over the last 2 months it was getting progressively worse. He has some lower extremity edema, some pain, but the edema seems to be chronic. He has also other comorbid conditions, including prostate cancer, for which he has had previous treatments. His main complaint was shortness of breath. He does have home oxygen. He has got significant COPD, but apparently progressively it has gotten worse over the last couple of months, more so in the last 2 weeks. He also has history of hypertension, hyperlipidemia, prostate cancer, type 2 diabetes, hyperlipidemia, and he takes oral agents for his diabetes. He does not have documented evidence of any CVA. There is a question of myocardial infarction. He does not have any major surgeries that he can tell me about. ALLERGIES: NONE. MEDICATIONS: 1. Metolazone. 2. Flomax. 3. Theophylline. 4. Singulair. 5. Lasix 20 mg daily. 6. Naproxen. 7. Tenormin 50 mg daily. 8. Glimepiride 2 mg b.i.d. 9. Atorvastatin 20 mg daily. 10.Janumet; dose is unclear. PHYSICAL EXAMINATION: Blood pressure is 148/80. Pulse rate is about 90 per minute, regular. HEENT: Unremarkable. Fundus was not examined by me. NECK: Supple. There is JVD of at least 1 to 1.5 cm above the sternal angle. There is no carotid bruit. Heart exam reveals S1, S2 heard normally. There is a short systolic murmur at left sternal border and base. Second heart sound is well preserved. Lungs reveal bilateral diminished air entry. Abdomen is distended, nontender. Lower extremities reveal bilateral mild edema with diminished pulses. Central nervous system is grossly within normal limits. EKG revealed a sinus mechanism with poor R-wave progression in leads V1 to V3 and slightly leftward axis but no acute changes. LABORATORY DATA: BNP of 1050, which is technically normal for this patient. His troponin levels are normal. Liver functions are within normal limits. BUN and creatinine are elevated, suggestive of chronic kidney disease secondary to diabetes. D-dimer was elevated at 2.2. Patient had a V/Q scan which revealed intermediate probability. Dr. Bonilla has seen him and advised him to continue heparin for the time being. IMPRESSION: 1. Exacerbation of chronic obstructive pulmonary disease in a patient with known chronic oxygen-dependent chronic obstructive pulmonary disease. 2. I do not believe we are dealing with any systolic heart failure without any clinical evidence of heart failure and also normal BNP. 3. Probable significant pulmonary hypertension. 4. History of prostate cancer, for which he had radiation treatments. RECOMMENDATIONS: I would recommend that we obtain an echocardiogram to assess LV function, continue IV heparin while the diagnosis of pulmonary embolism is still in flux. His troponin levels are normal, suggesting that there is no myocardial damage. Based on clinical findings, I will make further recommendations. Appreciate Dr. Bonilla's input from a pulmonary standpoint on this patient. I do not believe we are dealing with pulmonary embolism in a patient with a chronic lung disease. Based on clinical course, I will make further recommendations. Thank you very much for the consult. NITISH / NATHANIEL: [id number] /
[2017-07-22] MEDS: SYMBICORT 160-4.5 MCG INHALER INHALATION SCH (20:15)
[2017-07-22 21:24] LABS: Glucose,Whole Blood 336 mg/dL (75-99)
[2017-07-23 05:49] LABS: Glucose,Whole Blood 316 mg/dL (75-99)
[2017-07-23] MEDS: methylPREDNISolone SOD SUCCI 125 MG/2 ML VIAL IV SCH ×4 (06:23→23:12)
[2017-07-23] MEDS: INSULIN ASPART 100 UNIT/ML 1 ML 10 ML VIAL SQ SCH ×4 (06:23→21:57)
[2017-07-23] MEDS: PANTOPRAZOLE 40 MG TABLET PO SCH (06:23)
[2017-07-23 06:24] LABS: Anisocytosis Slight; Basophils % (A) 0 %; Eosinophils % (A) 0 %; HCT 28.2 % (39.0-53.0); Hypochromasia Slight; Lymphocytes # (A) 0.4 k/uL (1.0-4.8); Lymphocytes % (A) 7 %; MCH 30.1 pg (25.0-35.0); MCHC 31.9 g/dL (31.0-37.0); MCV 94.3 fL (80.0-100.0); Mean Platelet Volume 7.3; Monocytes # (A) 0.3 k/uL (0-1.0); Monocytes % (A) 5 %; Neutrophils % (A) 88 %; Platelet Count 260 k/uL (150-450); Poikilocytosis Slight; RBC 2.99 m/uL (4.30-5.90); RDW 16.7 % (11.5-15.5); WBC 5.7 k/uL (3.8-10.6)
[2017-07-23 06:37] LABS: Calcium 7.9 mg/dL (8.4-10.2); Potassium 3.6 mmol/L (3.5-5.1)
[2017-07-23] MEDS: ATENOLOL 50 MG TAB PO SCH (07:52)
[2017-07-23] MEDS: ASPIRIN 325 MG TAB PO SCH (07:52)
[2017-07-23] MEDS: ATORVASTATIN 20 MG TAB PO SCH (07:52)
[2017-07-23] MEDS: GLIMEPIRIDE 2 MG TAB PO SCH ×2 (07:53→20:02)
[2017-07-23] MEDS: B COMPLEX-VIT C-VIT E-ZINC 1 EACH TAB PO SCH (07:53)
[2017-07-23] MEDS: FUROSEMIDE 10 MG/ML 4 ML VIAL IV SCH ×2 (07:53→20:02)
[2017-07-23] MEDS: LINAGLIPTIN 5 MG TABLET PO SCH (07:53)
[2017-07-23] MEDS: NAPROXEN 250 MG TAB PO SCH ×2 (07:54→20:02)
[2017-07-23] MEDS: metFORMIN 500 MG TAB PO SCH ×2 (07:54→20:02)
[2017-07-23] MEDS: LORATADINE 10 MG TAB PO SCH (07:54)
[2017-07-23] MEDS: POTASSIUM CHLORIDE ER 10 MEQ TAB.ER.PRT PO SCH (07:55)
[2017-07-23] MEDS: MONTELUKAST 10 MG TAB PO SCH (07:55)
[2017-07-23] MEDS: TAMSULOSIN 0.4 MG CAP.ER.24H PO SCH (07:55)
[2017-07-23] MEDS: THEOPHYLLINE 24 HOUR 300 MG CAP.ER.24H PO SCH (07:55)
[2017-07-23] MEDS: NITROGLYCERIN OINT 1 INCH/GM PACKET TOPICAL SCH ×4 (07:55→20:02)
[2017-07-23] MEDS: VIT A,C & E-LUTEIN-MINERALS 1 EACH TAB PO SCH (07:56)
[2017-07-23] MEDS: INSULIN DETEMIR 100 UNIT/ML 10 ML VIAL SQ SCH (08:10)
[2017-07-23] MEDS: SYMBICORT 160-4.5 MCG INHALER INHALATION SCH ×3 (08:51→19:20)
[2017-07-23] MEDS: IPRATROPIUM-ALBUTEROL 3 ML NEB INHALATION SCH ×5 (08:51→19:22)
--- NOTE | 2017-07-23 09:41 | P.PN ---
Subjective Progress Note Date: 07/23/17 Principal diagnosis: Acute on chronic hypoxic respiratory failure secondary to suspected pulmonary embolism and acute exacerbation of chronic obstructive pulmonary disease. This is a very pleasant 82-year-old gentleman who follows with Dr. Juarez as his primary care physician. He has a history of hyperlipidemia, hypertension, coronary artery disease, congestive heart failure, diabetes mellitus, gastroesophageal reflux disease. He also has a history of chronic obstructive pulmonary disease and was recently, in April 2017, started on home oxygen. He was due to see Dr. Morgan in our office as a new patient this week. He has been seen by a knitted goods shaper in [place] where he spends his mae. He is on Trelegy, theophylline, Singulair, albuterol in the outpatient setting. He is unsure of his pulmonary function numbers. He does have a history of prostate cancer diagnosed in September 2016. He had undergone 25 external radiation treatments and subsequently sent to [place] for a 26 internal radiation with seed implants. He states since that last treatment he has had lower extremity weakness and worsening shortness of breath. He has been seen by a neurologist who states his lower extremity weakness is secondary to the radiation treatments. Neuropathy. Over the past several weeks he has also been having complaints of increasing swelling in the lower extremities and had been seen in [facility] treated with diuretics and released. The swelling started again and he had been seen by Dr. Juarez who at this time referred him here yesterday for further evaluation. He is seen today in consultation on the selective care unit. He is awake and alert in no acute distress. He is dyspneic with minimal exertion and minimal conversation. He states this is not new but has been getting progressively worse. Troponins have been negative. ProBNP 1050. Creatinine 1.82. White count 2.9. Hemoglobin 9.9. D-dimer 2.20. Doppler studies of the lower extremities were negative for DVT bilaterally. VQ scan revealed a moderate-sized effusion defect along the lateral right lung and a right basilar defect. Read as intermediate probability for pulmonary embolism. The patient is currently on a heparin drip. He is also receiving Lasix 40 mg IV push every 12 hours. He is currently maintaining good O2 saturations in the 90s on 3 L/m per nasal cannula. He's been afebrile. Hemodynamically stable. Initiated on bronchodilators and IV Solu-Medrol. The patient is seen again today 07/23/2017 in follow-up on the selective care unit. He is awake and alert in no acute distress. He is up ambulating with physical therapy without any significant shortness of breath. He is breathing easier today as compared to yesterday. Maintaining O2 saturations in the 90s on 3 L/m per nasal cannula. He's been afebrile. Hemodynamically stable. White count 5.7. Hemoglobin 9.0. Creatinine 1.53. Blood cultures reveal no growth to date. Objective - Vital Signs Vital signs: Vital Signs Temp 97.4 F L 07/23/17 03:11 Pulse 92 07/23/17 09:13 Resp 21 07/23/17 03:14 BP 134/78 07/23/17 03:11 Pulse Ox 91 L 07/23/17 03:11 Intake & Output 07/22/17 07/23/17 07/23/17 18:59 06:59 18:59 Intake Total 825.968 438.901 240 Output Total 300 700 Balance 525.968 -261.099 240 Weight 85.2 kg 85 kg Intake: IV 250 Heparin Sodium,Porcine/ 250 D5w Pmx 25,000 unit In Dextrose/Water 1 500ml. bag @ 18 UNITS/KG/HR 31. 35 mls/hr IV .[id number] NORIS Rx#:[id number] Intake, IV Titration 335.968 438.901 Amount Heparin Sodium,Porcine/ 335.968 438.901 D5w Pmx 25,000 unit In Dextrose/Water 1 500ml. bag @ 18 UNITS/KG/HR 31. 35 mls/hr IV .[id number] NORIS Rx#:[id number] Oral 240 240 Output: Urine 300 700 Other: Voiding Method Urinal Urinal # Voids 1 - Exam - Constitutional General appearance: average body habitus, no acute distress - EENT Eyes: EOMI, PERRLA ENT: hard of hearing Ears: bilateral: normal - Neck Neck: normal ROM Carotids: bilateral: upstroke normal Thyroid: bilateral: normal size - Respiratory Respiratory: bilateral: diminished, wheezing - Cardiovascular Rhythm: regular Heart sounds: normal: S1, S2 - Gastrointestinal General gastrointestinal: normal bowel sounds, no organomegaly, soft, no tenderness - Neurologic Neurologic: CNII-XII intact - Musculoskeletal Musculoskeletal: generalized weakness - Psychiatric Psychiatric: A&O x's 3, appropriate affect, intact judgment & insight - Labs CBC & Chem 7: 07/23/17 05:34 07/23/17 05:34 Labs: Abnormal Lab Results - Last 24 Hours (Table) 07/21/17 07/22/17 07/22/17 Range/Units 23:56 11:43 16:08 RBC (4.30-5.90) m/uL Hgb (13.0-17.5) gm/dL Hct (39.0-53.0) % RDW (11.5-15.5) % Lymphocytes # (1.0-4.8) k/uL APTT (22.0-30.0) sec Chloride (98-107) mmol/L BUN (9-20) mg/dL Creatinine (0.66-1.25) mg/dL Glucose (74-99) mg/dL POC Glucose (mg/dL) 307 H 352 H (75-99) mg/dL Hemoglobin A1c 6.9 H (4.0-6.0) % Calcium (8.4-10.2) mg/dL 07/22/17 07/22/17 07/23/17 Range/Units 21:23 23:52 05:34 RBC 2.99 L (4.30-5.90) m/uL Hgb 9.0 L (13.0-17.5) gm/dL Hct 28.2 L (39.0-53.0) % RDW 16.7 H (11.5-15.5) % Lymphocytes # 0.4 L (1.0-4.8) k/uL APTT 47.3 H (22.0-30.0) sec Chloride (98-107) mmol/L BUN (9-20) mg/dL Creatinine (0.66-1.25) mg/dL Glucose (74-99) mg/dL POC Glucose (mg/dL) 336 H (75-99) mg/dL Hemoglobin A1c (4.0-6.0) % Calcium (8.4-10.2) mg/dL 07/23/17 07/23/17 Range/Units 05:34 05:48 RBC (4.30-5.90) m/uL Hgb (13.0-17.5) gm/dL Hct (39.0-53.0) % RDW (11.5-15.5) % Lymphocytes # (1.0-4.8) k/uL APTT (22.0-30.0) sec Chloride 93 L (98-107) mmol/L BUN 68 H (9-20) mg/dL Creatinine 1.53 H (0.66-1.25) mg/dL Glucose 270 H (74-99) mg/dL POC Glucose (mg/dL) 316 H (75-99) mg/dL Hemoglobin A1c (4.0-6.0) % Calcium 7.9 L (8.4-10.2) mg/dL Microbiology - Last 24 Hours (Table) 07/21/17 17:27 Blood Culture - Preliminary Blood No Growth after 24 hours Assessment and Plan Assessment: Impression: #1 Acute on chronic hypoxic respiratory failure secondary to suspected pulmonary embolism as well as acute exacerbation of chronic obstructive pulmonary disease and possible acute on chronic diastolic congestive heart failure. #2 Oxygen dependent chronic obstructive pulmonary disease. #3 History of chronic tobacco dependence. #4 History of prostate cancer status post radiation with lower extremity neuropathy. #5 Lower extremity edema and suspect secondary to congestive heart failure. #6 History of coronary artery disease. #7 Diabetes mellitus. #8 Gastroesophageal reflux disease. #9 Hyperlipidemia. #10 Acute renal failure secondary to diuretics. Plan: The patient was seen and evaluated by Dr. Bonilla. We'll continue to treat him for COPD exacerbation. Continue bronchodilators, Symbicort and IV Solu-Medrol. Repeat a chest x-ray. He will need to be transitioned to an oral anticoagulant. We will continue to follow and make further recommendations based on his clinical status. I, the cosigning physician, performed a history & physical examination of the patient. Lungs sounds have bilateral end expiratory wheeze, diminished. Maintaining good O2 saturations in the 90s on 3 L/m per nasal cannula. I discussed the assessment and plan of care with my nurse practitioner, Kanwal Godfrey. I attest to the above note as dictated by her.
--- NOTE | 2017-07-23 10:35 | XR ---
EXAMINATION TYPE: XR chest 1V portable DATE OF EXAM: 07/23/2017 COMPARISON: 07/21/2017 HISTORY: Congestive heart failure and shortness of breath TECHNIQUE: Single frontal view of the chest is obtained. FINDINGS: Scattered left basilar subsegmental atelectasis is seen. There is overall improvement in t he previously noted mild interstitial pulmonary edema. There is no cephalization, sizable pleural eff usion or pneumothorax. Cardiomediastinal silhouette is enlarged. Slightly hypoventilatory lungs accen tuates the pulmonary vasculature. There is diffuse osseous demineralization. IMPRESSION: Multifocal linear left basilar atelectasis. Improvement in previously noted interstitial edema.
--- NOTE | 2017-07-23 11:40 | CDI ---
Last Revision, January 2017 Documentation Clarification Form Date: 07/23/2017 11:32:00 AM From: Sole CasarezCostaSHERRELL, CCDS Admit Date: 07/21/2017 7:46:00 PM Patient Name: Roberto Heard Visit Number: [id number] Discharge Date: ATTENTION: The Clinical Documentation Specialists (CDI) and [facility] Coding Staff appreciate your assistance in clarifying documentation. Please respond to the clarification below the line at the bottom and electronically sign. The CDI & [facility] Coding staff will review the response and follow-up if needed. Please note: Queries are made part of the Legal Health Record. If you have any questions, please contact the author of this message via ITS. Dr. Nyasia Christiansen: There is conflicting documentation in the medical record regarding congestive heart failure: Per the Cardiology consult on 07/22: "I do not believe we are dealing with any systolic heart failure without any clinical evidence of heart failure and also normal BNP." Per the Pulmonary consult & subsequent progress note: "Acute on chronic hypoxic respiratory failure secondary to suspected pulmonary embolism as well as acute exacerbation of chronic obstructive pulmonary disease and possible acute on chronic systolic congestive heart failure." History/Risk Factors: COPD O2 dep, CHF nos, DM, Hypertension & Hyperlipidemia. Clinical Indicators: Presented with SOB & lower extremity edema. VS: T 99.4, P 78, R 22 (sob), BP 145/63, PO 90 ra BNP: 1050 Echocardiogram Results 07/22: Left Ventricular systolic function normal w/EF 55-60 %, right ventricle mildly enlarged, Tr MR, Mild TR, Mild pulmonary hypertension. Chest X Ray: 07/21: Mild interstitial phase cardiogenic pulmonary edema. 07/23: Left basilar atelectasis, improvement in interstitial edema. Home Rx: Lasix 20 mg, Home O2. Treatment: IV Lasix 40 mg x1 in ED, In your professional opinion, can you please clarify the acuity and type of CHF is present? Acute Chronic Acute on Chronic Systolic or Diastolic Heart Failure or combined Unable to Determine Other, please specify Please continue to document in your progress notes and discharge summary in order to capture severity of illness and risk of mortality. Include clinical findings that support your diagnosis. Chronic Diastolic Heart Failure MTDD
[2017-07-23 12:01] LABS: Glucose,Whole Blood 250 mg/dL (75-99)
[2017-07-23] MEDS: HEPARIN SODIUM,PORCINE/D5W PMX 25,000 UNIT in DEXTROSE/WATER 1 500ML.BAG IV SCH (16:25)
[2017-07-23 16:31] LABS: Glucose,Whole Blood 310 mg/dL (75-99)
--- NOTE | 2017-07-23 18:07 | PN ---
PROGRESS NOTE Mr. Heard has advanced COPD. He came in with exacerbation. There was intermediate probability V/Q scan. The patient is being treated with anticoagulation. Dr. Bonilla feels that, given his presentation, he will be better off with 3-month anticoagulation. I do not have an objection. Cardiac-mcclure he is stable. No anginal symptoms. Vitals are stable. S1, S2 heard normally. Short systolic murmur noted. Lungs reveal improved air entry. Abdomen and lower extremity exam is unchanged. Clinically patient is doing better than yesterday. We will see him as needed from a cardiac standpoint. MMODL / IJN: [id number] /
--- NOTE | 2017-07-23 18:57 | P.PN ---
Subjective Progress Note Date: 07/22/17 Principal diagnosis: Acute COPD exacerbation and pulmonary embolism Patient is a 82-year-old male with a known history of hypertension, hyperlipidemia, coronary artery disease, diabetes type 2, COPD on home oxygen started on recently in April 2017 and also prostate cancer diagnosed in September 2016 status post 25 radiation treatments and subsequently seen at [facility] for a 26 internal radiation with seed implants. Patient presented to ER with worsening shortness of breath and also lower exudate weakness as well as swelling on admission. Patient was seen at [facility] for bilateral lower swelling and was treated with diuretics. Patient was seen by Dr. Juarez and referred him to ER for further radiation or shortness of breath. D-dimer 2.2 and VQ scan showed moderate probably for PE. Patient was started on heparin drip. Patient also receiving Lasix 40 mg twice a day. BNP 1050. Troponin 3 negative. Creatinine 1.82 admission. Patient is being followed by pulmonary and cardiology. 2-D echo cardiac exam showed normal EF. On 07/22/2017 Patient is pretty status is improving at this time. He is being continued on heparin drip due to moderate possible for PE. CTA chest could not be done due to elevated creatinine level. Due to the fact that patient has been having worsening shortness of breath recently and also history of prostate cancer, he' ll be continued on antibiotic regulation at this time. Patient is also on Lasix. Cardiology and pulmonary is following. Unlikely acute CHF. Patient is being continued on breathing treatments and steroids. No nausea vomiting or abdominal pain. No fever no chills. No chest pain or worsening shortness of breath. All other review of systems negative except the above Current medications reviewed. Objective - Vital Signs Vital signs: Vital Signs Temp 98 F 07/22/17 07:50 Pulse 96 07/22/17 12:00 Resp 18 07/22/17 12:00 BP 121/88 07/22/17 12:00 Pulse Ox 90 L 07/22/17 12:00 Intake & Output 07/21/17 07/22/17 07/22/17 18:59 06:59 18:59 Intake Total 321.362 825.968 Output Total 1725 300 Balance -1403.638 525.968 Weight 87.09 kg 85.2 kg 85.2 kg Intake: IV 250 Heparin Sodium,Porcine/ 250 D5w Pmx 25,000 unit In Dextrose/Water 1 500ml. bag @ 18 UNITS/KG/HR 31. 35 mls/hr IV .[id number] NORIS Rx#:[id number] Intake, IV Titration 221.362 335.968 Amount Heparin Sodium,Porcine/ 221.362 335.968 D5w Pmx 25,000 unit In Dextrose/Water 1 500ml. bag @ 18 UNITS/KG/HR 31. 35 mls/hr IV .[id number] NORIS Rx#:[id number] Oral 100 240 Output: Urine 1725 300 Other: Voiding Method Urinal Urinal # Voids 1 - Exam PHYSICAL EXAMINATION: Patient is lying in the bed comfortably, no acute distress, awake alert and oriented.. HEENT: Normocephalic. Neck is supple. Pupils reactive. Nostrils clear. Oral cavity is moist. Ears reveal no drainage. Neck reveals no JVD, carotid bruits, or thyromegaly. CHEST EXAMINATION: Trachea is central. Symmetrical expansion. Lung gale clear to auscultation and percussion. CARDIAC: Normal S1, S2 with no gallops. No murmurs ABDOMEN: Soft. Bowel sounds normal. No organomegaly. No abdominal bruits. Extremities: Bilateral lower extremity trace edema. Venostasis changes. No clubbing or cyanosis Neurologically awake, alert, oriented x3 with well-coordinated movements. No focal deficits noted Skin: No rash or skin lesions. Psychiatric: Cooperative. Nonsuicidal Musculoskeletal: No joint swelling or deformity. Normal range of motion. - Labs CBC & Chem 7: 07/23/17 05:34 07/23/17 05:34 Labs: Abnormal Lab Results - Last 24 Hours (Table) 07/21/17 07/21/17 07/21/17 Range/Units 17:27 17:27 17:27 WBC 3.1 L (3.8-10.6) k/uL RBC 3.16 L (4.30-5.90) m/uL Hgb 9.6 L (13.0-17.5) gm/dL Hct 29.4 L (39.0-53.0) % RDW 16.7 H (11.5-15.5) % Lymphocytes # (1.0-4.8) k/uL Lymphocytes # (Manual) 0.68 L (1.0-4.8) k/uL INR (<1.2) APTT (22.0-30.0) sec D-Dimer (<0.60) mg/L FEU Chloride 97 L (98-107) mmol/L Carbon Dioxide 31 H (22-30) mmol/L BUN 59 H (9-20) mg/dL Creatinine 1.82 H (0.66-1.25) mg/dL Glucose 157 H (74-99) mg/dL POC Glucose (mg/dL) (75-99) mg/dL Hemoglobin A1c (4.0-6.0) % Total Creatine Kinase 46 L (55-170) U/L Total Protein 6.0 L (6.3-8.2) g/dL 07/21/17 07/21/17 07/21/17 Range/Units 17:27 20:32 23:56 WBC (3.8-10.6) k/uL RBC (4.30-5.90) m/uL Hgb (13.0-17.5) gm/dL Hct (39.0-53.0) % RDW (11.5-15.5) % Lymphocytes # (1.0-4.8) k/uL Lymphocytes # (Manual) (1.0-4.8) k/uL INR 1.2 H (<1.2) APTT (22.0-30.0) sec D-Dimer 2.20 H (<0.60) mg/L FEU Chloride (98-107) mmol/L Carbon Dioxide (22-30) mmol/L BUN (9-20) mg/dL Creatinine (0.66-1.25) mg/dL Glucose (74-99) mg/dL POC Glucose (mg/dL) 190 H (75-99) mg/dL Hemoglobin A1c 6.9 H (4.0-6.0) % Total Creatine Kinase (55-170) U/L Total Protein (6.3-8.2) g/dL 07/21/17 07/22/17 07/22/17 Range/Units 23:56 05:40 06:01 WBC 2.9 L (3.8-10.6) k/uL RBC 3.24 L (4.30-5.90) m/uL Hgb 9.9 L (13.0-17.5) gm/dL Hct 30.6 L (39.0-53.0) % RDW 16.6 H (11.5-15.5) % Lymphocytes # 0.4 L (1.0-4.8) k/uL Lymphocytes # (Manual) (1.0-4.8) k/uL INR (<1.2) APTT 60.1 H (22.0-30.0) sec D-Dimer (<0.60) mg/L FEU Chloride (98-107) mmol/L Carbon Dioxide (22-30) mmol/L BUN (9-20) mg/dL Creatinine (0.66-1.25) mg/dL Glucose (74-99) mg/dL POC Glucose (mg/dL) 310 H (75-99) mg/dL Hemoglobin A1c (4.0-6.0) % Total Creatine Kinase (55-170) U/L Total Protein (6.3-8.2) g/dL 07/22/17 Range/Units 11:43 WBC (3.8-10.6) k/uL RBC (4.30-5.90) m/uL Hgb (13.0-17.5) gm/dL Hct (39.0-53.0) % RDW (11.5-15.5) % Lymphocytes # (1.0-4.8) k/uL Lymphocytes # (Manual) (1.0-4.8) k/uL INR (<1.2) APTT (22.0-30.0) sec D-Dimer (<0.60) mg/L FEU Chloride (98-107) mmol/L Carbon Dioxide (22-30) mmol/L BUN (9-20) mg/dL Creatinine (0.66-1.25) mg/dL Glucose (74-99) mg/dL POC Glucose (mg/dL) 307 H (75-99) mg/dL Hemoglobin A1c (4.0-6.0) % Total Creatine Kinase (55-170) U/L Total Protein (6.3-8.2) g/dL Assessment and Plan Assessment: Shortness of breath secondary to acute COPD exacerbation and also acute pulmonary embolism Acute on chronic hypoxic respiratory failure Elevated d-dimer with moderate probability for PE on VQ scan Unlikely acute CHF with normal EF and also BNP is not elevated Acute on chronic kidney disease stage III Hypertension Hyperlipidemia Diabetes type 2 GERD Prostate cancer status post external and internal radiation History of DC CODE STATUS is DO NOT RESUSCITATE/DO NOT INTUBATE Plan: Patient will be continued on heparin drip and will be changed to oral antibiotic regulation. Continued on Lasix and aspirin, atenolol.. Patient will be continued on breathing treatments and IV steroids. Pulmonary and cardiology is following. Further recommendations based on clinical course. Prognosis is guarded with multiple medical problems and comorbid conditions. Time with Patient: Greater than 30
--- NOTE | 2017-07-23 19:04 | P.PN ---
Subjective Progress Note Date: 07/23/17 Principal diagnosis: Acute COPD exacerbation and pulmonary embolism Patient is a 82-year-old male with a known history of hypertension, hyperlipidemia, coronary artery disease, diabetes type 2, COPD on home oxygen started on recently in April 2017 and also prostate cancer diagnosed in September 2016 status post 25 radiation treatments and subsequently seen at [facility] for a 26 internal radiation with seed implants. Patient presented to ER with worsening shortness of breath and also lower exudate weakness as well as swelling on admission. Patient was seen at [facility] for bilateral lower swelling and was treated with diuretics. Patient was seen by Dr. Juarez and referred him to ER for further radiation or shortness of breath. D-dimer 2.2 and VQ scan showed moderate probably for PE. Patient was started on heparin drip. Patient also receiving Lasix 40 mg twice a day. BNP 1050. Troponin 3 negative. Creatinine 1.82 admission. Patient is being followed by pulmonary and cardiology. 2-D echo cardiac exam showed normal EF. On 07/22/2017 Patient is pretty status is improving at this time. He is being continued on heparin drip due to moderate possible for PE. CTA chest could not be done due to elevated creatinine level. Due to the fact that patient has been having worsening shortness of breath recently and also history of prostate cancer, he' ll be continued on antibiotic regulation at this time. Patient is also on Lasix. Cardiology and pulmonary is following. Unlikely acute CHF. Patient is being continued on breathing treatments and steroids. No nausea vomiting or abdominal pain. No fever no chills. No chest pain or worsening shortness of breath. 07/23/2017 Patient's breathing status is much improved now. Improved air entry bilateral lung gale. Patient is being continued on heparin drip and will be transitioned to oral anticoagulation. Patient recovered on Lasix. Chest x-ray showed improvement in interstitial edema. Renal function improved with creatinine level I.5 Otherwise patient is improving overall. Patient is able to saturate well on nasal cannula. No chest pain. No fever no chills. No acute overnight issues. All other review of systems negative except the above Current medications reviewed. Active Medications Generic Name Dose Route Start Last Admin Trade Name Freq PRN Reason Stop Dose Admin Albuterol/Ipratropium 3 ml 07/22/17 01:29 Duoneb 0.5 Mg-3 Mg/3 Ml Soln INHALATION RT-QID PRN Shortness Of Breath Or Wheezing Albuterol/Ipratropium 3 ml 07/22/17 08:00 07/23/17 15:54 Duoneb 0.5 Mg-3 Mg/3 Ml Soln INHALATION 3 ml RT-QID NORIS Administration Apixaban 10 mg 07/23/17 21:00 Eliquis PO 07/30/17 21:01 BID NORIS Aspirin 325 mg 07/22/17 09:00 07/23/17 07:52 Aspirin PO 325 mg DAILY NORIS Administration Atenolol 50 mg 07/22/17 09:00 07/23/17 07:52 Tenormin PO 50 mg DAILY NORIS Administration Atorvastatin Calcium 20 mg 07/22/17 09:00 07/23/17 07:52 Lipitor PO 20 mg DAILY NORIS Administration Budesonide/Formoterol Fumarate 2 puff 07/22/17 20:00 07/23/17 08:55 Symbicort 160-4.5 Mcg Inhaler INHALATION 2 puff RT-BID NORIS Administration Furosemide 40 mg 07/21/17 21:00 07/23/17 07:53 Lasix IV 40 mg Q12HR NORIS Administration Glimepiride 2 mg 07/21/17 21:00 07/23/17 07:53 Amaryl PO 2 mg BID NORIS Administration Insulin Aspart 0 unit 07/21/17 21:00 07/23/17 16:23 Novolog SQ 8 unit ACHS NORIS Administration Protocol Insulin Detemir 10 unit 07/22/17 12:00 07/23/17 08:10 Levemir SQ 10 unit DAILY NORIS Administration Linagliptin 5 mg 07/22/17 09:00 07/23/17 07:53 Tradjenta PO 5 mg DAILY NORIS Administration Loratadine 10 mg 07/22/17 09:00 07/23/17 07:54 Claritin PO 10 mg DAILY NORIS Administration Metformin HCl 500 mg 07/21/17 21:00 07/23/17 07:54 Glucophage PO 500 mg BID NORIS Administration Methylprednisolone Sodium Succinate 60 mg 07/22/17 14:00 07/23/17 16:24 Solu-Medrol IV 60 mg Q6HR NORIS Administration Montelukast Sodium 10 mg 07/22/17 09:00 07/23/17 07:55 Singulair PO 10 mg DAILY NORIS Administration Multivitamins/Minerals 1 each 07/22/17 09:00 07/23/17 07:56 Ivite PO 1 each DAILY NORIS Administration Naproxen 500 mg 07/21/17 21:00 07/23/17 07:54 Naprosyn PO 500 mg BID NORIS Administration Nitroglycerin 1 inch 07/21/17 22:00 07/23/17 16:25 Nitro-Bid Oint TOPICAL 1 inch QID NORIS Administration Pantoprazole Sodium 40 mg 07/22/17 07:30 07/23/17 06:23 Protonix PO 40 mg AC-BRKFST NORIS Administration Potassium Chloride 10 meq 07/22/17 09:00 07/23/17 07:55 K-Dur 10 PO 10 meq DAILY NORIS Administration Tamsulosin HCl 0.4 mg 07/22/17 09:00 07/23/17 07:55 Flomax PO 0.4 mg DAILY NORIS Administration Theophylline 300 mg 07/22/17 09:00 07/23/17 07:55 Santo-24 PO 300 mg DAILY NORIS Administration Vitamin B Complex/Vit C/Vit E/Zinc 1 each 07/22/17 09:00 07/23/17 07:53 Z-Bec PO 1 each DAILY NORIS Administration Objective - Vital Signs Vital signs: Vital Signs Temp 97.4 F L 07/23/17 16:00 Pulse 88 07/23/17 16:04 Resp 18 07/23/17 16:00 BP 130/60 07/23/17 16:00 Pulse Ox 95 07/23/17 16:00 Intake & Output 07/22/17 07/23/17 07/23/17 18:59 06:59 18:59 Intake Total 825.968 438.901 950.217 Output Total 300 700 Balance 525.968 -261.099 950.217 Weight 85.2 kg 85 kg Intake: IV 250 Heparin Sodium,Porcine/ 250 D5w Pmx 25,000 unit In Dextrose/Water 1 500ml. bag @ 18 UNITS/KG/HR 31. 35 mls/hr IV .[id number] [facility] Rx#:[id number] Intake, IV Titration 335.968 438.901 470.217 Amount Heparin Sodium,Porcine/ 335.968 438.901 470.217 D5w Pmx 25,000 unit In Dextrose/Water 1 500ml. bag @ 18 UNITS/KG/HR 31. 35 mls/hr IV .[id number] [facility] Rx#:[id number] Oral 240 480 Output: Urine 300 700 Other: Voiding Method Urinal Urinal # Voids 1 - Exam PHYSICAL EXAMINATION: Patient is lying in the bed comfortably, no acute distress, awake alert and oriented.. HEENT: Normocephalic. Neck is supple. Pupils reactive. Nostrils clear. Oral cavity is moist. Ears reveal no drainage. Neck reveals no JVD, carotid bruits, or thyromegaly. CHEST EXAMINATION: Trachea is central. Symmetrical expansion. Lung gale clear to auscultation and percussion. CARDIAC: Normal S1, S2 with no gallops. No murmurs ABDOMEN: Soft. Bowel sounds normal. No organomegaly. No abdominal bruits. Extremities: Bilateral lower extremity trace edema. Venostasis changes. No clubbing or cyanosis Neurologically awake, alert, oriented x3 with well-coordinated movements. No focal deficits noted Skin: No rash or skin lesions. Psychiatric: Cooperative. Nonsuicidal Musculoskeletal: No joint swelling or deformity. Normal range of motion. - Labs CBC & Chem 7: 07/23/17 05:34 07/23/17 05:34 Labs: Abnormal Lab Results - Last 24 Hours (Table) 07/22/17 07/22/17 07/23/17 Range/Units 21:23 23:52 05:34 RBC 2.99 L (4.30-5.90) m/uL Hgb 9.0 L (13.0-17.5) gm/dL Hct 28.2 L (39.0-53.0) % RDW 16.7 H (11.5-15.5) % Lymphocytes # 0.4 L (1.0-4.8) k/uL APTT 47.3 H (22.0-30.0) sec Chloride (98-107) mmol/L BUN (9-20) mg/dL Creatinine (0.66-1.25) mg/dL Glucose (74-99) mg/dL POC Glucose (mg/dL) 336 H (75-99) mg/dL Calcium (8.4-10.2) mg/dL 07/23/17 07/23/17 07/23/17 Range/Units 05:34 05:48 11:46 RBC (4.30-5.90) m/uL Hgb (13.0-17.5) gm/dL Hct (39.0-53.0) % RDW (11.5-15.5) % Lymphocytes # (1.0-4.8) k/uL APTT (22.0-30.0) sec Chloride 93 L (98-107) mmol/L BUN 68 H (9-20) mg/dL Creatinine 1.53 H (0.66-1.25) mg/dL Glucose 270 H (74-99) mg/dL POC Glucose (mg/dL) 316 H 250 H (75-99) mg/dL Calcium 7.9 L (8.4-10.2) mg/dL 07/23/17 Range/Units 16:20 RBC (4.30-5.90) m/uL Hgb (13.0-17.5) gm/dL Hct (39.0-53.0) % RDW (11.5-15.5) % Lymphocytes # (1.0-4.8) k/uL APTT (22.0-30.0) sec Chloride (98-107) mmol/L BUN (9-20) mg/dL Creatinine (0.66-1.25) mg/dL Glucose (74-99) mg/dL POC Glucose (mg/dL) 310 H (75-99) mg/dL Calcium (8.4-10.2) mg/dL Microbiology - Last 24 Hours (Table) 07/21/17 17:27 Blood Culture - Preliminary Blood No Growth after 24 hours Assessment and Plan Assessment: Shortness of breath secondary to acute COPD exacerbation and also acute pulmonary embolism Acute on chronic hypoxic respiratory failure secondary to above Elevated d-dimer with moderate probability for PE on VQ scan Unlikely acute CHF with normal EF and also BNP is not elevated Acute on chronic kidney disease stage III Hypertension Hyperlipidemia Diabetes type 2 GERD Prostate cancer status post external and internal radiation History of [place] CODE STATUS is DO NOT RESUSCITATE/DO NOT INTUBATE Plan: Patient was continued on heparin drip and changed to oral anticoagulation. Continued on Lasix and aspirin, atenolol.. Patient will be continued on breathing treatments and IV steroids. Pulmonary and cardiology is following. Further recommendations based on clinical course. Prognosis is guarded with multiple medical problems and comorbid conditions. Time with Patient: Greater than 30
[2017-07-23] MEDS: APIXABAN 5 MG TAB PO SCH (20:06)
[2017-07-23 21:06] LABS: Glucose,Whole Blood 335 mg/dL (75-99)
[2017-07-24 05:56] LABS: Glucose,Whole Blood 144 mg/dL (75-99)
[2017-07-24] MEDS: INSULIN ASPART 100 UNIT/ML 1 ML 10 ML VIAL SQ SCH ×4 (06:09→21:04)
[2017-07-24] MEDS: methylPREDNISolone SOD SUCCI 125 MG/2 ML VIAL IV SCH (06:10)
[2017-07-24] MEDS: PANTOPRAZOLE 40 MG TABLET PO SCH (06:10)
[2017-07-24 06:22] LABS: Anisocytosis Slight; Basophils % (A) 0 %; Eosinophils % (A) 0 %; HCT 27.1 % (39.0-53.0); HGB 8.7 gm/dL (13.0-17.5); Hypochromasia Slight; Lymphocytes # (A) 0.3 k/uL (1.0-4.8); Lymphocytes % (A) 5 %; MCH 30.3 pg (25.0-35.0); MCHC 32.2 g/dL (31.0-37.0); MCV 94.2 fL (80.0-100.0); Mean Platelet Volume 7.3; Monocytes # (A) 0.5 k/uL (0-1.0); Monocytes % (A) 8 %; Neutrophils # (A) 5.5 k/uL (1.3-7.7); Neutrophils % (A) 86 %; Platelet Count 260 k/uL (150-450); RBC 2.87 m/uL (4.30-5.90); RDW 16.6 % (11.5-15.5); WBC 6.3 k/uL (3.8-10.6)
[2017-07-24 06:37] LABS: Calcium 7.9 mg/dL (8.4-10.2); Potassium 3.4 mmol/L (3.5-5.1)
[2017-07-24] MEDS: FUROSEMIDE 10 MG/ML 4 ML VIAL IV SCH ×2 (07:49→19:30)
[2017-07-24] MEDS: NITROGLYCERIN OINT 1 INCH/GM PACKET TOPICAL SCH ×4 (07:49→19:32)
[2017-07-24] MEDS: LINAGLIPTIN 5 MG TABLET PO SCH (07:50)
[2017-07-24] MEDS: THEOPHYLLINE 24 HOUR 300 MG CAP.ER.24H PO SCH (07:50)
[2017-07-24] MEDS: ASPIRIN 325 MG TAB PO SCH (07:50)
[2017-07-24] MEDS: TAMSULOSIN 0.4 MG CAP.ER.24H PO SCH (07:50)
[2017-07-24] MEDS: B COMPLEX-VIT C-VIT E-ZINC 1 EACH TAB PO SCH (07:50)
[2017-07-24] MEDS: metFORMIN 500 MG TAB PO SCH ×2 (07:50→19:32)
[2017-07-24] MEDS: ATENOLOL 50 MG TAB PO SCH (07:50)
[2017-07-24] MEDS: ATORVASTATIN 20 MG TAB PO SCH (07:50)
[2017-07-24] MEDS: MONTELUKAST 10 MG TAB PO SCH (07:50)
[2017-07-24] MEDS: VIT A,C & E-LUTEIN-MINERALS 1 EACH TAB PO SCH (07:50)
[2017-07-24] MEDS: POTASSIUM CHLORIDE ER 10 MEQ TAB.ER.PRT PO SCH (07:50)
[2017-07-24] MEDS: GLIMEPIRIDE 2 MG TAB PO SCH ×2 (07:50→19:31)
[2017-07-24] MEDS: APIXABAN 5 MG TAB PO SCH ×2 (07:51→19:30)
[2017-07-24] MEDS: NAPROXEN 250 MG TAB PO SCH ×2 (07:51→19:32)
[2017-07-24] MEDS: LORATADINE 10 MG TAB PO SCH (07:52)
[2017-07-24] MEDS: INSULIN DETEMIR 100 UNIT/ML 10 ML VIAL SQ SCH (07:58)
[2017-07-24] MEDS: IPRATROPIUM-ALBUTEROL 3 ML NEB INHALATION SCH ×4 (08:34→20:47)
[2017-07-24] MEDS: SYMBICORT 160-4.5 MCG INHALER INHALATION SCH ×2 (08:34→20:47)
--- NOTE | 2017-07-24 10:44 | P.PN ---
Subjective Progress Note Date: 07/24/17 Principal diagnosis: Acute on chronic hypoxic respiratory failure secondary to suspected pulmonary embolism and acute exacerbation of chronic obstructive pulmonary disease. This is a very pleasant 82-year-old gentleman who follows with Dr. Juarez as his primary care physician. He has a history of hyperlipidemia, hypertension, coronary artery disease, congestive heart failure, diabetes mellitus, gastroesophageal reflux disease. He also has a history of chronic obstructive pulmonary disease and was recently, in April 2017, started on home oxygen. He was due to see Dr. Morgan in our office as a new patient this week. He has been seen by a international flight attendant in [place] where he spends his mae. He is on Trelegy, theophylline, Singulair, albuterol in the outpatient setting. He is unsure of his pulmonary function numbers. He does have a history of prostate cancer diagnosed in September 2016. He had undergone 25 external radiation treatments and subsequently sent to [place] for a 26 internal radiation with seed implants. He states since that last treatment he has had lower extremity weakness and worsening shortness of breath. He has been seen by a neurologist who states his lower extremity weakness is secondary to the radiation treatments. Neuropathy. Over the past several weeks he has also been having complaints of increasing swelling in the lower extremities and had been seen in [facility] treated with diuretics and released. The swelling started again and he had been seen by Dr. Juarez who at this time referred him here yesterday for further evaluation. He is seen today in consultation on the selective care unit. He is awake and alert in no acute distress. He is dyspneic with minimal exertion and minimal conversation. He states this is not new but has been getting progressively worse. Troponins have been negative. ProBNP 1050. Creatinine 1.82. White count 2.9. Hemoglobin 9.9. D-dimer 2.20. Doppler studies of the lower extremities were negative for DVT bilaterally. VQ scan revealed a moderate-sized effusion defect along the lateral right lung and a right basilar defect. Read as intermediate probability for pulmonary embolism. The patient is currently on a heparin drip. He is also receiving Lasix 40 mg IV push every 12 hours. He is currently maintaining good O2 saturations in the 90s on 3 L/m per nasal cannula. He's been afebrile. Hemodynamically stable. Initiated on bronchodilators and IV Solu-Medrol. The patient is seen again today 07/23/2017 in follow-up on the selective care unit. He is awake and alert in no acute distress. He is up ambulating with physical therapy without any significant shortness of breath. He is breathing easier today as compared to yesterday. Maintaining O2 saturations in the 90s on 3 L/m per nasal cannula. He's been afebrile. Hemodynamically stable. White count 5.7. Hemoglobin 9.0. Creatinine 1.53. Blood cultures reveal no growth to date. The patient is seen again today 07/24/2017 in follow-up on the selective care unit. He is awake and alert in no acute distress. He is resting quite comfortably in bed. He denies any worsening shortness of breath, cough or congestion. No chest pain or palpitations. Chest x-ray shows improvement in the interstitial edema. His weight is stable at 85 kg. White count 6.3. Hemoglobin 8.7. Creatinine 1.45. He has been transitioned to Eliquis. Objective - Vital Signs Vital signs: Vital Signs Temp 97.6 F 07/24/17 08:00 Pulse 72 07/24/17 08:49 Resp 16 07/24/17 08:00 BP 126/66 07/24/17 08:00 Pulse Ox 96 07/24/17 08:00 Intake & Output 07/23/17 07/24/17 07/24/17 18:59 06:59 18:59 Intake Total 950.217 960 240 Output Total 0 Balance 950.217 960 240 Weight 85 kg Intake: Intake, IV Titration 470.217 Amount Heparin Sodium,Porcine/ 470.217 D5w Pmx 25,000 unit In Dextrose/Water 1 500ml. bag @ 18 UNITS/KG/HR 31. 35 mls/hr IV .[id number] [facility] Rx#:[id number] Oral 480 960 240 Output: Urine 0 Other: Voiding Method Urinal # Voids 2 - Exam - Constitutional General appearance: average body habitus, no acute distress - EENT Eyes: EOMI, PERRLA ENT: hard of hearing Ears: bilateral: normal - Neck Neck: normal ROM Carotids: bilateral: upstroke normal Thyroid: bilateral: normal size - Respiratory Respiratory: bilateral: Faint crackles in the posterior bases - Cardiovascular Rhythm: regular Heart sounds: normal: S1, S2 - Gastrointestinal General gastrointestinal: normal bowel sounds, no organomegaly, soft, no tenderness - Neurologic Neurologic: CNII-XII intact - Musculoskeletal Musculoskeletal: generalized weakness - Psychiatric Psychiatric: A&O x's 3, appropriate affect, intact judgment & insight - Labs CBC & Chem 7: 07/24/17 05:37 07/24/17 05:37 Labs: Abnormal Lab Results - Last 24 Hours (Table) 07/23/17 07/23/17 07/23/17 Range/Units 11:46 16:20 21:05 RBC (4.30-5.90) m/uL Hgb (13.0-17.5) gm/dL Hct (39.0-53.0) % RDW (11.5-15.5) % Lymphocytes # (1.0-4.8) k/uL Sodium (137-145) mmol/L Potassium (3.5-5.1) mmol/L Chloride (98-107) mmol/L Carbon Dioxide (22-30) mmol/L BUN (9-20) mg/dL Creatinine (0.66-1.25) mg/dL Glucose (74-99) mg/dL POC Glucose (mg/dL) 250 H 310 H 335 H (75-99) mg/dL Calcium (8.4-10.2) mg/dL 07/24/17 07/24/17 07/24/17 Range/Units 05:37 05:37 05:55 RBC 2.87 L (4.30-5.90) m/uL Hgb 8.7 L (13.0-17.5) gm/dL Hct 27.1 L (39.0-53.0) % RDW 16.6 H (11.5-15.5) % Lymphocytes # 0.3 L (1.0-4.8) k/uL Sodium 146 H (137-145) mmol/L Potassium 3.4 L (3.5-5.1) mmol/L Chloride 96 L (98-107) mmol/L Carbon Dioxide 33 H (22-30) mmol/L BUN 79 H (9-20) mg/dL Creatinine 1.45 H (0.66-1.25) mg/dL Glucose 133 H (74-99) mg/dL POC Glucose (mg/dL) 144 H (75-99) mg/dL Calcium 7.9 L (8.4-10.2) mg/dL Microbiology - Last 24 Hours (Table) 07/21/17 17:27 Blood Culture - Preliminary Blood No Growth after 48 hours Assessment and Plan Assessment: Impression: #1 Acute on chronic hypoxic respiratory failure secondary to suspected pulmonary embolism as well as acute exacerbation of chronic obstructive pulmonary disease and possible acute on chronic diastolic congestive heart failure. #2 Oxygen dependent chronic obstructive pulmonary disease. #3 History of chronic tobacco dependence. #4 History of prostate cancer status post radiation with lower extremity neuropathy. #5 Lower extremity edema and suspect secondary to congestive heart failure. #6 History of coronary artery disease. #7 Diabetes mellitus. #8 Gastroesophageal reflux disease. #9 Hyperlipidemia. #10 Acute renal failure secondary to diuretics. Plan: The patient was seen and evaluated by Dr. Bonilla. We'll continue to treat him for COPD exacerbation. Continue bronchodilators, Symbicort and transition from IV site Medrol to prednisone taper. He has been initiated on Eliquis. Continue diuretics. We will continue to follow and make further recommendations based on his clinical status. I, the cosigning physician, performed a history & physical examination of the patient. Lungs sounds have crackles in the posterior bases, diminished. Maintaining good O2 saturations in the 90s on 3 L/m per nasal cannula. I discussed the assessment and plan of care with my nurse practitioner, Kanwal Godfrey. I attest to the above note as dictated by her.
[2017-07-24 11:27] LABS: Glucose,Whole Blood 83 mg/dL (75-99)
[2017-07-24] MEDS: GABAPENTIN 100 MG CAP PO SCH ×2 (16:49→19:31)
[2017-07-24 16:54] LABS: Glucose,Whole Blood 64 mg/dL (75-99)
[2017-07-24 17:09] LABS: Glucose,Whole Blood 77 mg/dL (75-99)
[2017-07-24 21:02] LABS: Glucose,Whole Blood 59 mg/dL (75-99)
[2017-07-24 21:16] VITALS: RESP 18
[2017-07-24 22:44] LABS: Glucose,Whole Blood 88 mg/dL (75-99)
[2017-07-25 06:00] VITALS: BP 138/73; TEMP 96.9
[2017-07-25 07:02] LABS: Glucose,Whole Blood 64 mg/dL (75-99)
[2017-07-25 07:20] LABS: Glucose,Whole Blood 74 mg/dL (75-99)
[2017-07-25] MEDS: INSULIN ASPART 100 UNIT/ML 1 ML 10 ML VIAL SQ SCH ×2 (07:21→13:13)
[2017-07-25] MEDS: IPRATROPIUM-ALBUTEROL 3 ML NEB INHALATION SCH ×2 (07:37→11:13)
[2017-07-25] MEDS: SYMBICORT 160-4.5 MCG INHALER INHALATION SCH (07:38)
[2017-07-25 07:41] VITALS: PULSE 70
[2017-07-25] MEDS: APIXABAN 5 MG TAB PO SCH (08:31)
[2017-07-25] MEDS: TAMSULOSIN 0.4 MG CAP.ER.24H PO SCH (08:31)
[2017-07-25] MEDS: NITROGLYCERIN OINT 1 INCH/GM PACKET TOPICAL SCH ×3 (08:31→12:33)
[2017-07-25] MEDS: POTASSIUM CHLORIDE ER 10 MEQ TAB.ER.PRT PO SCH (08:31)
[2017-07-25] MEDS: GABAPENTIN 100 MG CAP PO SCH (08:31)
[2017-07-25] MEDS: THEOPHYLLINE 24 HOUR 300 MG CAP.ER.24H PO SCH (08:32)
[2017-07-25] MEDS: B COMPLEX-VIT C-VIT E-ZINC 1 EACH TAB PO SCH (08:32)
[2017-07-25] MEDS: NAPROXEN 250 MG TAB PO SCH (08:32)
[2017-07-25] MEDS: metFORMIN 500 MG TAB PO SCH ×2 (08:33→08:41)
[2017-07-25] MEDS: ASPIRIN 325 MG TAB PO SCH (08:33)
[2017-07-25] MEDS: VIT A,C & E-LUTEIN-MINERALS 1 EACH TAB PO SCH (08:33)
[2017-07-25] MEDS: GLIMEPIRIDE 2 MG TAB PO SCH (08:33)
[2017-07-25] MEDS: PANTOPRAZOLE 40 MG TABLET PO SCH (08:33)
[2017-07-25] MEDS: LINAGLIPTIN 5 MG TABLET PO SCH (08:34)
[2017-07-25] MEDS: MONTELUKAST 10 MG TAB PO SCH (08:34)
[2017-07-25] MEDS: LORATADINE 10 MG TAB PO SCH (08:34)
[2017-07-25] MEDS: INSULIN DETEMIR 100 UNIT/ML 10 ML VIAL SQ SCH (08:35)
[2017-07-25] MEDS: ATORVASTATIN 20 MG TAB PO SCH (08:36)
[2017-07-25] MEDS: ATENOLOL 50 MG TAB PO SCH (08:36)
[2017-07-25 08:37] LABS: Anisocytosis Slight; Basophils % (A) 0 %; Eosinophils % (A) 0 %; HCT 29.7 % (39.0-53.0); HGB 9.6 gm/dL (13.0-17.5); Hypochromasia Slight; Lymphocytes # (A) 0.4 k/uL (1.0-4.8); Lymphocytes % (A) 8 %; MCH 30.6 pg (25.0-35.0); MCHC 32.2 g/dL (31.0-37.0); MCV 94.9 fL (80.0-100.0); Monocytes # (A) 0.4 k/uL (0-1.0); Monocytes % (A) 7 %; Neutrophils # (A) 4.2 k/uL (1.3-7.7); Neutrophils % (A) 83 %; Platelet Count 252 k/uL (150-450); Poikilocytosis Slight; RBC 3.13 m/uL (4.30-5.90); RDW 16.8 % (11.5-15.5); WBC 5.1 k/uL (3.8-10.6)
[2017-07-25] MEDS ORDERED: predniSONE 20 MG TAB PO SCH (09:00)
[2017-07-25] MEDS ORDERED: FUROSEMIDE 40 MG TAB PO SCH (09:00)
[2017-07-25 09:04] LABS: Calcium 7.9 mg/dL (8.4-10.2)
[2017-07-25 09:18] LABS: Potassium 2.9 mmol/L (3.5-5.1)
[2017-07-25] MEDS ORDERED: Potassium Replacement Protocol 1 EACH MISC MISCELLANE PRN (09:36)
[2017-07-25] MEDS: POTASSIUM CHLORIDE ER 20 MEQ TAB.ER PO SCH ×3 (09:50→12:32)
[2017-07-25] MEDS ORDERED: Magnesium Replacement Protocol 1 EACH MISC MISCELLANE PRN (10:12)
[2017-07-25] MEDS: MAGNESIUM SULFATE-D5W PMX 1 GM in DEXTROSE/WATER 1 100ML.BAG IVPB SCH ×3 (10:32→12:33)
--- NOTE | 2017-07-25 10:59 | P.PN ---
Subjective Progress Note Date: 07/25/17 Principal diagnosis: Acute on chronic hypoxic respiratory failure secondary to suspected pulmonary embolism and acute exacerbation of chronic obstructive pulmonary disease This is a very pleasant 82-year-old gentleman who follows with Dr. Juarez as his primary care physician. He has a history of hyperlipidemia, hypertension, coronary artery disease, congestive heart failure, diabetes mellitus, gastroesophageal reflux disease. He also has a history of chronic obstructive pulmonary disease and was recently, in April 2017, started on home oxygen. He was due to see Dr. Morgan in our office as a new patient this week. He has been seen by a general science teacher in [place] where he spends his mae. He is on Trelegy, theophylline, Singulair, albuterol in the outpatient setting. He is unsure of his pulmonary function numbers. He does have a history of prostate cancer diagnosed in September 2016. He had undergone 25 external radiation treatments and subsequently sent to [facility] for a 26 internal radiation with seed implants. He states since that last treatment he has had lower extremity weakness and worsening shortness of breath. He has been seen by a neurologist who states his lower extremity weakness is secondary to the radiation treatments. Neuropathy. Over the past several weeks he has also been having complaints of increasing swelling in the lower extremities and had been seen in [facility] treated with diuretics and released. The swelling started again and he had been seen by Dr. Juarez who at this time referred him here yesterday for further evaluation. He is seen today in consultation on the selective care unit. He is awake and alert in no acute distress. He is dyspneic with minimal exertion and minimal conversation. He states this is not new but has been getting progressively worse. Troponins have been negative. ProBNP 1050. Creatinine 1.82. White count 2.9. Hemoglobin 9.9. D-dimer 2.20. Doppler studies of the lower extremities were negative for DVT bilaterally. VQ scan revealed a moderate-sized effusion defect along the lateral right lung and a right basilar defect. Read as intermediate probability for pulmonary embolism. The patient is currently on a heparin drip. He is also receiving Lasix 40 mg IV push every 12 hours. He is currently maintaining good O2 saturations in the 90s on 3 L/m per nasal cannula. He's been afebrile. Hemodynamically stable. Initiated on bronchodilators and IV Solu-Medrol. The patient is seen again today 07/23/2017 in follow-up on the selective care unit. He is awake and alert in no acute distress. He is up ambulating with physical therapy without any significant shortness of breath. He is breathing easier today as compared to yesterday. Maintaining O2 saturations in the 90s on 3 L/m per nasal cannula. He's been afebrile. Hemodynamically stable. White count 5.7. Hemoglobin 9.0. Creatinine 1.53. Blood cultures reveal no growth to date. The patient is seen again today 07/24/2017 in follow-up on the selective care unit. He is awake and alert in no acute distress. He is resting quite comfortably in bed. He denies any worsening shortness of breath, cough or congestion. No chest pain or palpitations. Chest x-ray shows improvement in the interstitial edema. His weight is stable at 85 kg. White count 6.3. Hemoglobin 8.7. Creatinine 1.45. He has been transitioned to Eliquis. On 2017 patient seen in follow-up on medical surgical floor. He denies any dyspnea, denies any chest pain, pulse ox on 3 L per nasal cannula is 99%, vital signs are stable, afebrile. IV diuretics have been transitioned to oral, patient's weight is down 1 kg in last 24 hours. His lower extremity edema is improving. Patient states he has been ambulating in the room, and tolerated activity well. He is on oral Eliquis for a possibility of pulmonary embolism. IV steroids have been switched to oral prednisone, remains stable from pulmonary standpoint, and discharge home is pending today. Objective - Vital Signs Vital signs: Vital Signs Temp 96.9 F L 07/25/17 06:00 Pulse 70 07/25/17 07:48 Resp 18 07/25/17 06:00 BP 138/73 07/25/17 06:00 Pulse Ox 99 07/25/17 06:00 Intake & Output 07/24/17 07/25/17 07/25/17 18:59 06:59 18:59 Intake Total 840 240 Output Total 0 Balance 840 240 Weight 84 kg Intake: Oral 840 240 Output: Urine 0 Other: Voiding Method Urinal Urinal # Voids 2 2 - Exam - Constitutional General appearance: average body habitus, no acute distress - EENT Eyes: EOMI, PERRLA ENT: hard of hearing Ears: bilateral: normal - Neck Neck: normal ROM Carotids: bilateral: upstroke normal Thyroid: bilateral: normal size - Respiratory Respiratory: bilateral: Faint crackles in the posterior bases - Cardiovascular Rhythm: regular Heart sounds: normal: S1, S2 - Gastrointestinal General gastrointestinal: normal bowel sounds, no organomegaly, soft, no tenderness - Neurologic Neurologic: CNII-XII intact - Musculoskeletal Musculoskeletal: generalized weakness - Psychiatric Psychiatric: A&O x's 3, appropriate affect, intact judgment & insight - Labs CBC & Chem 7: 07/25/17 07:20 07/25/17 07:20 Labs: Abnormal Lab Results - Last 24 Hours (Table) 07/24/17 07/24/17 07/25/17 Range/Units 16:51 21:01 06:59 RBC (4.30-5.90) m/uL Hgb (13.0-17.5) gm/dL Hct (39.0-53.0) % RDW (11.5-15.5) % Lymphocytes # (1.0-4.8) k/uL Sodium (137-145) mmol/L Potassium (3.5-5.1) mmol/L Chloride (98-107) mmol/L Carbon Dioxide (22-30) mmol/L BUN (9-20) mg/dL Creatinine (0.66-1.25) mg/dL Glucose (74-99) mg/dL POC Glucose (mg/dL) 64 L 59 L 64 L (75-99) mg/dL Calcium (8.4-10.2) mg/dL Magnesium (1.6-2.3) mg/dL 07/25/17 07/25/17 07/25/17 Range/Units 07:18 07:20 07:20 RBC 3.13 L (4.30-5.90) m/uL Hgb 9.6 L (13.0-17.5) gm/dL Hct 29.7 L (39.0-53.0) % RDW 16.8 H (11.5-15.5) % Lymphocytes # 0.4 L (1.0-4.8) k/uL Sodium 146 H (137-145) mmol/L Potassium 2.9 L* (3.5-5.1) mmol/L Chloride 94 L (98-107) mmol/L Carbon Dioxide 38 H (22-30) mmol/L BUN 80 H* (9-20) mg/dL Creatinine 1.60 H (0.66-1.25) mg/dL Glucose 56 L (74-99) mg/dL POC Glucose (mg/dL) 74 L (75-99) mg/dL Calcium 7.9 L (8.4-10.2) mg/dL Magnesium (1.6-2.3) mg/dL 07/25/17 Range/Units 07:20 RBC (4.30-5.90) m/uL Hgb (13.0-17.5) gm/dL Hct (39.0-53.0) % RDW (11.5-15.5) % Lymphocytes # (1.0-4.8) k/uL Sodium (137-145) mmol/L Potassium (3.5-5.1) mmol/L Chloride (98-107) mmol/L Carbon Dioxide (22-30) mmol/L BUN (9-20) mg/dL Creatinine (0.66-1.25) mg/dL Glucose (74-99) mg/dL POC Glucose (mg/dL) (75-99) mg/dL Calcium (8.4-10.2) mg/dL Magnesium 1.1 L (1.6-2.3) mg/dL Microbiology - Last 24 Hours (Table) 07/21/17 17:27 Blood Culture - Preliminary Blood No Growth after 72 hours Assessment and Plan Plan: Assessment: #1 Acute on chronic hypoxic respiratory failure secondary to suspected pulmonary embolism as well as acute exacerbation of chronic obstructive pulmonary disease and possible acute on chronic diastolic congestive heart failure. #2 Oxygen dependent chronic obstructive pulmonary disease. #3 History of chronic tobacco dependence. #4 History of prostate cancer status post radiation with lower extremity neuropathy. #5 Lower extremity edema and suspect secondary to congestive heart failure. #6 History of coronary artery disease. #7 Diabetes mellitus. #8 Gastroesophageal reflux disease. #9 Hyperlipidemia. #10 Acute renal failure secondary to diuretics. Plan: Patient continues to improve, breathing easier, denies any dyspnea or chest pain. Has been diuresed, and treated for his COPD exacerbation with inhaled bronchodilators, steroids, and has responded well to treatment, started on Eliquis. Overall is stable from pulmonary standpoint, and ready for discharge home today. Follow-up with Dr. Morgan in the office in 7-10 days I performed a history & physical examination of the patient and discussed their management with my nurse practitioner, Venecia Brady. I reviewed the nurse practitioner's note and agree with the documented findings and plan of care. Lung sounds are positive for bibasilar crackles. The findings and the impression was discussed with the patient. I attest to the documentation by the nurse practitioner. Time with Patient: Less than 30
[2017-07-25 11:49] LABS: Glucose,Whole Blood 164 mg/dL (75-99)
[2017-07-25 14:29] LABS: Calcium 8.5 mg/dL (8.4-10.2); Magnesium 2.1 mg/dL (1.6-2.3)
--- NOTE | 2017-08-03 23:19 | P.PN ---
Subjective Progress Note Date: 07/24/17 Principal diagnosis: Acute COPD exacerbation and pulmonary embolism Patient is a 82-year-old male with a known history of hypertension, hyperlipidemia, coronary artery disease, diabetes type 2, COPD on home oxygen started on recently in April 2017 and also prostate cancer diagnosed in September 2016 status post 25 radiation treatments and subsequently seen at [facility] for a 26 internal radiation with seed implants. Patient presented to ER with worsening shortness of breath and also lower exudate weakness as well as swelling on admission. Patient was seen at [facility] for bilateral lower swelling and was treated with diuretics. Patient was seen by Dr. Juarez and referred him to ER for further radiation or shortness of breath. D-dimer 2.2 and VQ scan showed moderate probably for PE. Patient was started on heparin drip. Patient also receiving Lasix 40 mg twice a day. BNP 1050. Troponin 3 negative. Creatinine 1.82 admission. Patient is being followed by pulmonary and cardiology. 2-D echo cardiac exam showed normal EF. On 07/22/2017 Patient is pretty status is improving at this time. He is being continued on heparin drip due to moderate possible for PE. CTA chest could not be done due to elevated creatinine level. Due to the fact that patient has been having worsening shortness of breath recently and also history of prostate cancer, he' ll be continued on antibiotic regulation at this time. Patient is also on Lasix. Cardiology and pulmonary is following. Unlikely acute CHF. Patient is being continued on breathing treatments and steroids. No nausea vomiting or abdominal pain. No fever no chills. No chest pain or worsening shortness of breath. 07/23/2017 Patient's breathing status is much improved now. Improved air entry bilateral lung gale. Patient is being continued on heparin drip and will be transitioned to oral anticoagulation. Patient recovered on Lasix. Chest x-ray showed improvement in interstitial edema. Renal function improved with creatinine level I.5 Otherwise patient is improving overall. Patient is able to saturate well on nasal cannula. No chest pain. No fever no chills. No acute overnight issues. 07/24/17: He is awake and alert in no acute distress. He is resting quite comfortably in bed. He denies any worsening shortness of breath, cough or congestion. No chest pain or palpitations. Chest x-ray shows improvement in the interstitial edema. His weight is stable at 85 kg. White count 6.3. Hemoglobin 8.7. Creatinine 1.45. He has been transitioned to Eliquis. All other review of systems negative except the above Current medications reviewed. Active Medications Generic Name Dose Route Start Last Admin Trade Name Freq PRN Reason Stop Dose Admin Albuterol/Ipratropium 3 ml 07/22/17 01:29 Duoneb 0.5 Mg-3 Mg/3 Ml Soln INHALATION RT-QID PRN Shortness Of Breath Or Wheezing Albuterol/Ipratropium 3 ml 07/22/17 08:00 07/23/17 15:54 Duoneb 0.5 Mg-3 Mg/3 Ml Soln INHALATION 3 ml RT-QID NORIS Administration Apixaban 10 mg 07/23/17 21:00 Eliquis PO 07/30/17 21:01 BID NORIS Aspirin 325 mg 07/22/17 09:00 07/23/17 07:52 Aspirin PO 325 mg DAILY NORIS Administration Atenolol 50 mg 07/22/17 09:00 07/23/17 07:52 Tenormin PO 50 mg DAILY NORIS Administration Atorvastatin Calcium 20 mg 07/22/17 09:00 07/23/17 07:52 Lipitor PO 20 mg DAILY NORIS Administration Budesonide/Formoterol Fumarate 2 puff 07/22/17 20:00 07/23/17 08:55 Symbicort 160-4.5 Mcg Inhaler INHALATION 2 puff RT-BID NORIS Administration Furosemide 40 mg 07/21/17 21:00 07/23/17 07:53 Lasix IV 40 mg Q12HR NORIS Administration Glimepiride 2 mg 07/21/17 21:00 07/23/17 07:53 Amaryl PO 2 mg BID NORIS Administration Insulin Aspart 0 unit 07/21/17 21:00 07/23/17 16:23 Novolog SQ 8 unit ACHS NORIS Administration Protocol Insulin Detemir 10 unit 07/22/17 12:00 07/23/17 08:10 Levemir SQ 10 unit DAILY NORIS Administration Linagliptin 5 mg 07/22/17 09:00 07/23/17 07:53 Tradjenta PO 5 mg DAILY NORIS Administration Loratadine 10 mg 07/22/17 09:00 07/23/17 07:54 Claritin PO 10 mg DAILY NORIS Administration Metformin HCl 500 mg 07/21/17 21:00 07/23/17 07:54 Glucophage PO 500 mg BID NORIS Administration Methylprednisolone Sodium Succinate 60 mg 07/22/17 14:00 07/23/17 16:24 Solu-Medrol IV 60 mg Q6HR NORIS Administration Montelukast Sodium 10 mg 07/22/17 09:00 07/23/17 07:55 Singulair PO 10 mg DAILY NORIS Administration Multivitamins/Minerals 1 each 07/22/17 09:00 07/23/17 07:56 Ivite PO 1 each DAILY NORIS Administration Naproxen 500 mg 07/21/17 21:00 07/23/17 07:54 Naprosyn PO 500 mg BID NORIS Administration Nitroglycerin 1 inch 07/21/17 22:00 07/23/17 16:25 Nitro-Bid Oint TOPICAL 1 inch QID NORIS Administration Pantoprazole Sodium 40 mg 07/22/17 07:30 07/23/17 06:23 Protonix PO 40 mg AC-[id number] NORIS Administration Potassium Chloride 10 meq 07/22/17 09:00 07/23/17 07:55 K-Dur 10 PO 10 meq DAILY NORIS Administration Tamsulosin HCl 0.4 mg 07/22/17 09:00 07/23/17 07:55 Flomax PO 0.4 mg DAILY NORIS Administration Theophylline 300 mg 07/22/17 09:00 07/23/17 07:55 Santo-24 PO 300 mg DAILY NORIS Administration Vitamin B Complex/Vit C/Vit E/Zinc 1 each 07/22/17 09:00 07/23/17 07:53 Z-Bec PO 1 each DAILY NORIS Administration Objective - Vital Signs Vital signs: Vital Signs Temp 97.4 F L 07/24/17 20:00 Pulse 71 07/24/17 21:00 Resp 18 07/24/17 20:00 BP 140/69 07/24/17 20:00 Pulse Ox 95 07/24/17 20:00 Intake & Output 07/24/17 07/24/17 07/25/17 06:59 18:59 06:59 Intake Total 960 840 240 Output Total 0 0 Balance 960 840 240 Weight 85 kg 85 kg Intake: Oral 960 840 240 Output: Urine 0 0 Other: Voiding Method Urinal Urinal Urinal # Voids 2 2 3 - Exam PHYSICAL EXAMINATION: Patient is lying in the bed comfortably, no acute distress, awake alert and oriented.. HEENT: Normocephalic. Neck is supple. Pupils reactive. Nostrils clear. Oral cavity is moist. Ears reveal no drainage. Neck reveals no JVD, carotid bruits, or thyromegaly. CHEST EXAMINATION: Trachea is central. Symmetrical expansion. Lung gale clear to auscultation and percussion. CARDIAC: Normal S1, S2 with no gallops. No murmurs ABDOMEN: Soft. Bowel sounds normal. No organomegaly. No abdominal bruits. Extremities: Bilateral lower extremity trace edema. Venostasis changes. No clubbing or cyanosis Neurologically awake, alert, oriented x3 with well-coordinated movements. No focal deficits noted Skin: No rash or skin lesions. Psychiatric: Cooperative. Nonsuicidal Musculoskeletal: No joint swelling or deformity. Normal range of motion. - Labs CBC & Chem 7: 07/25/17 07:20 07/25/17 13:57 Labs: Abnormal Lab Results - Last 24 Hours (Table) 07/24/17 07/24/17 07/24/17 Range/Units 05:37 05:37 05:55 RBC 2.87 L (4.30-5.90) m/uL Hgb 8.7 L (13.0-17.5) gm/dL Hct 27.1 L (39.0-53.0) % RDW 16.6 H (11.5-15.5) % Lymphocytes # 0.3 L (1.0-4.8) k/uL Sodium 146 H (137-145) mmol/L Potassium 3.4 L (3.5-5.1) mmol/L Chloride 96 L (98-107) mmol/L Carbon Dioxide 33 H (22-30) mmol/L BUN 79 H (9-20) mg/dL Creatinine 1.45 H (0.66-1.25) mg/dL Glucose 133 H (74-99) mg/dL POC Glucose (mg/dL) 144 H (75-99) mg/dL Calcium 7.9 L (8.4-10.2) mg/dL 07/24/17 07/24/17 Range/Units 16:51 21:01 RBC (4.30-5.90) m/uL Hgb (13.0-17.5) gm/dL Hct (39.0-53.0) % RDW (11.5-15.5) % Lymphocytes # (1.0-4.8) k/uL Sodium (137-145) mmol/L Potassium (3.5-5.1) mmol/L Chloride (98-107) mmol/L Carbon Dioxide (22-30) mmol/L BUN (9-20) mg/dL Creatinine (0.66-1.25) mg/dL Glucose (74-99) mg/dL POC Glucose (mg/dL) 64 L 59 L (75-99) mg/dL Calcium (8.4-10.2) mg/dL Microbiology - Last 24 Hours (Table) 07/21/17 17:27 Blood Culture - Preliminary Blood No Growth after 72 hours Assessment and Plan Assessment: Shortness of breath secondary to acute COPD exacerbation and also acute pulmonary embolism Acute on chronic hypoxic respiratory failure secondary to above Elevated d-dimer with moderate probability for PE on VQ scan Unlikely acute CHF with normal EF and also BNP is not elevated Acute on chronic kidney disease stage III Hypertension Hyperlipidemia Diabetes type 2 GERD Prostate cancer status post external and internal radiation History of [place] CODE STATUS is DO NOT RESUSCITATE/DO NOT INTUBATE Plan: Patient was continued on heparin drip and changed to oral anticoagulation. Continued on Lasix and aspirin, atenolol.. Patient will be continued on breathing treatments and IV steroids. Pulmonary and cardiology is following. Further recommendations based on clinical course. Prognosis is guarded with multiple medical problems and comorbid conditions. Time with Patient: Greater than 30
--- NOTE | 2017-08-03 23:23 | P.DS ---
Providers Date of admission: 07/21/17 19:46 Expected date of discharge: 07/25/17 Attending physician: Tin Freedman MD Consults: 07/21/17 19:42 Consult Physician Routine Consulting Provider: Mike Park Consult Reason/Comments: sob, chf Do you want consulting provider notified?: Yes 07/22/17 00:35 Consult Physician Routine Consulting Provider: Casandra Bonilla Consult Reason/Comments: copd Do you want consulting provider notified?: Yes Primary care physician: Adis Juarez [facility] Course: Discharge Diagnosis Shortness of breath secondary to acute COPD exacerbation and also acute pulmonary embolism Acute on chronic hypoxic respiratory failure secondary to above Elevated d-dimer with moderate probability for PE on VQ scan Unlikely acute CHF with normal EF and also BNP is not elevated Acute on chronic kidney disease stage III Hypertension Hyperlipidemia Diabetes type 2 GERD Prostate cancer status post external and internal radiation History of MO CODE STATUS is DO NOT RESUSCITATE/DO NOT INTUBATE Hospital course. Patient is a 82-year-old male with a known history of hypertension, hyperlipidemia, coronary artery disease, diabetes type 2, COPD on home oxygen started on recently in April 2017 and also prostate cancer diagnosed in September 2016 status post 25 radiation treatments and subsequently seen at [facility] for a 26 internal radiation with seed implants. Patient presented to ER with worsening shortness of breath and also lower exudate weakness as well as swelling on admission. Patient was seen at [facility] for bilateral lower swelling and was treated with diuretics. Patient was seen by Dr. Juarez and referred him to ER for further radiation or shortness of breath. D-dimer 2.2 and VQ scan showed moderate probably for PE. Patient was started on heparin drip. Patient also receiving Lasix 40 mg twice a day. BNP 1050. Troponin 3 negative. Creatinine 1.82 admission. Patient is being followed by pulmonary and cardiology. 2-D echo cardiac exam showed normal EF. On 07/22/2017 Patient is pretty status is improving at this time. He is being continued on heparin drip due to moderate possible for PE. CTA chest could not be done due to elevated creatinine level. Due to the fact that patient has been having worsening shortness of breath recently and also history of prostate cancer, he' ll be continued on antibiotic regulation at this time. Patient is also on Lasix. Cardiology and pulmonary is following. Unlikely acute CHF. Patient is being continued on breathing treatments and steroids. No nausea vomiting or abdominal pain. No fever no chills. No chest pain or worsening shortness of breath. 07/23/2017 Patient's breathing status is much improved now. Improved air entry bilateral lung gale. Patient is being continued on heparin drip and will be transitioned to oral anticoagulation. Patient recovered on Lasix. Chest x-ray showed improvement in interstitial edema. Renal function improved with creatinine level I.5 Otherwise patient is improving overall. Patient is able to saturate well on nasal cannula. No chest pain. No fever no chills. No acute overnight issues. 07/24/17: He is awake and alert in no acute distress. He is resting quite comfortably in bed. He denies any worsening shortness of breath, cough or congestion. No chest pain or palpitations. Chest x-ray shows improvement in the interstitial edema. His weight is stable at 85 kg. White count 6.3. Hemoglobin 8.7. Creatinine 1.45. He has been transitioned to Eliquis. 07/25/17 Pt. did improve clinically. continued with Eliquis. c/w prednisone taper. stable to be discharged home. Plan: Patient was continued on heparin drip and changed to oral anticoagulation. Continued on Lasix and aspirin, atenolol.. Patient as continued on breathing treatments and IV steroids. chnaged oral prednisone. Pulmonary and cardiology has seen the pt. Prognosis is guarded with multiple medical problems and comorbid conditions. PHYSICAL EXAMINATION: Patient is lying in the bed comfortably, no acute distress, awake alert and oriented.. HEENT: Normocephalic. Neck is supple. Pupils reactive. Nostrils clear. Oral cavity is moist. Ears reveal no drainage. Neck reveals no JVD, carotid bruits, or thyromegaly. CHEST EXAMINATION: Trachea is central. Symmetrical expansion. Lung gale clear to auscultation and percussion. CARDIAC: Normal S1, S2 with no gallops. No murmurs ABDOMEN: Soft. Bowel sounds normal. No organomegaly. No abdominal bruits. Extremities: Bilateral lower extremity trace edema. Venostasis changes. No clubbing or cyanosis Neurologically awake, alert, oriented x3 with well-coordinated movements. No focal deficits noted Skin: No rash or skin lesions. Psychiatric: Cooperative. Nonsuicidal Musculoskeletal: No joint swelling or deformity. Normal range of motion. Vitals reviewed. Patient Condition at Discharge: Fair Plan - Discharge Summary Discharge Rx Participant: No New Discharge Prescriptions: New Ipratropium-Albuterol Nebulize [Duoneb 0.5 mg-3 mg/3 ml Soln] 3 ml INHALATION RT-QID PRN ampul.neb PRN Reason: Shortness Of Breath Or Wheezing Potassium Chloride ER [K-Dur 20] 20 meq PO DAILY #30 tab.er.prt Apixaban [Eliquis] 10 mg PO BID 5 Days #10 tab Apixaban [Eliquis] 5 mg PO BID #60 tab Furosemide [Lasix] 40 mg PO BID@0900,1600 #60 tab predniSONE See Taper PO DAILY #17 tab Continue Vitamin B Complex 1 cap PO DAILY Tamsulosin [Flomax] 0.4 mg PO DAILY Vit C/E/Zn/Coppr/Lutein/Zeaxan [Preservision Areds 2 Softgel] 1 cap PO DAILY Theophylline 24 Hour [Santo-24] 300 mg PO DAILY Montelukast [Singulair] 10 mg PO DAILY Fexofenadine HCl [Shy Allergy] 180 mg PO DAILY Omeprazole 20 mg PO DAILY Atenolol [Tenormin] 50 mg PO DAILY sitaGLIPtin PHOS/metFORMIN HCL [Janumet Xr 100-1,000 mg Tablet] 1 tab PO DAILY Glimepiride [Amaryl] 2 mg PO BID Fluticasone/Umeclidin/Vilanter [Trelegy Ellipta 100-62.5-25] 1 puff INHALATION RT-DAILY Atorvastatin [Lipitor] 20 mg PO DAILY Discontinued Potassium Chloride ER [K-Dur 10] 10 meq PO DAILY Furosemide [Lasix] 20 mg PO DAILY Naproxen 500 mg PO BID Metolazone [Zaroxolyn] 5 mg PO DAILY Cetirizine HCl [Zyrtec] 10 mg PO DAILY Discharge Medication List Atenolol [Tenormin] 50 mg PO DAILY 07/21/17 [History] Atorvastatin [Lipitor] 20 mg PO DAILY 07/21/17 [History] Fexofenadine HCl [Shy Allergy] 180 mg PO DAILY 07/21/17 [History] Fluticasone/Umeclidin/Vilanter [Trelegy Ellipta 100-62.5-25] 1 puff INHALATION RT-DAILY 07/21/17 [History] Glimepiride [Amaryl] 2 mg PO BID 07/21/17 [History] Montelukast [Singulair] 10 mg PO DAILY 07/21/17 [History] Omeprazole 20 mg PO DAILY 07/21/17 [History] Tamsulosin [Flomax] 0.4 mg PO DAILY 07/21/17 [History] Theophylline 24 Hour [Santo-24] 300 mg PO DAILY 07/21/17 [History] Vit C/E/Zn/Coppr/Lutein/Zeaxan [Preservision Areds 2 Softgel] 1 cap PO DAILY 06/04 [History] Vitamin B Complex 1 cap PO DAILY 07/21/17 [History] sitaGLIPtin PHOS/metFORMIN HCL [Janumet Xr 100-1,000 mg Tablet] 1 tab PO DAILY 07/21/17 [History] Apixaban [Eliquis] 5 mg PO BID #60 tab 07/25/17 [Rx] Apixaban [Eliquis] 10 mg PO BID 5 Days #10 tab 07/25/17 [Rx] Furosemide [Lasix] 40 mg PO BID@0900,1600 #60 tab 07/25/17 [Rx] Ipratropium-Albuterol Nebulize [Duoneb 0.5 mg-3 mg/3 ml Soln] 3 ml INHALATION RT -QID PRN ampul.neb 07/25/17 [Rx] Potassium Chloride ER [K-Dur 20] 20 meq PO DAILY #30 tab.er.prt 07/25/17 [Rx] predniSONE See Taper PO DAILY #17 tab 07/25/17 [Rx] Follow up Appointment(s)/Referral(s): Casandra Bonilla MD [STAFF PHYSICIAN] - 07/31/17 1:00 pm Adis Juarez MD [Primary Care Provider] - 07/31/17 3:00 pm Patient Instructions/Handouts: Heart Failure (DC), Pulmonary Embolism (DC), Type 2 Diabetes in Adults (DC), COPD (Chronic Obstructive Pulmonary Disease) (DC ), Safe Use of Anticoagulants (DC) Discharge Disposition: HOME SELF-CARE
== END 2017-07-25 15:53 | disposition home or self-care (01) | DRG 175 ==
LOC: EC 16:44 → 6SEL 19:46 → 4MS4W 07-24 23:34
PROVIDERS: ADMIT Internal Medicine; ATTEND Internal Medicine
DX: I26.99 Other pulmonary embolism without acute cor pulmonale (principal); J96.21 Acute and chronic respiratory failure with hypoxia; I13.0 Hypertensive heart and chronic kidney disease with heart failure and stage 1 through stage 4 chronic kidney disease, or unspecified chronic kidney disease; N17.9 Acute kidney failure, unspecified; J44.1 Chronic obstructive pulmonary disease with (acute) exacerbation; I50.32 Chronic diastolic (congestive) heart failure; E11.22 Type 2 diabetes mellitus with diabetic chronic kidney disease; I27.20 Pulmonary hypertension, unspecified; G62.82 Radiation-induced polyneuropathy; N18.3 Chronic kidney disease, stage 3 (moderate); Z66 Do not resuscitate; D64.9 Anemia, unspecified; D72.819 Decreased white blood cell count, unspecified; K21.9 Gastro-esophageal reflux disease without esophagitis; E78.5 Hyperlipidemia, unspecified; I25.2 Old myocardial infarction; I25.10 Atherosclerotic heart disease of native coronary artery without angina pectoris; T50.2X5A Adverse effect of carbonic-anhydrase inhibitors, benzothiadiazides and other diuretics, initial encounter; Z99.81 Dependence on supplemental oxygen; Z79.84 Long term (current) use of oral hypoglycemic drugs; Z79.1 Long term (current) use of non-steroidal anti-inflammatories (NSAID); Z79.51 Long term (current) use of inhaled steroids; Z79.899 Other long term (current) drug therapy; Z85.46 Personal history of malignant neoplasm of prostate; Z92.3 Personal history of irradiation; Z87.891 Personal history of nicotine dependence
CPT/HCPCS: 36415; 71045; 71046; 78582; 80048; 80053; 80198; 81003; 82550; 82553; 83036; 83735; 83880; 84484; 85025; 85379; 85610; 85730; 87040; 93005; 93306; 93970; 94640; 96365; 96375; 96376; 99285